=== PATIENT | female | born 1930 | race Caucasian/White ===

== ENCOUNTER 2016-11-29 16:55 | Emergency (ER) | payer MEDICARE, MEDICAID ==
[2016-11-29] MEDS ORDERED: Acetaminophen/HYDROcodone 325-10 MG Tab PO ONE (17:40)
--- NOTE | 2016-11-29 17:43 | EDM.PDOC ---
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 There was no LOC. She initally did not report any pain, but subsequently developed pain affecting the L hip. Staff did not detect any bruising, administered Tylenol without benefit, and subsequently moved her from [facility] to the [facility] for evaluation. She is accompanied by her daughter. Allergies/ADRs: Allergies acetaminophen [From Darvocet-N 100] Allergy (Verified 11/29/16 17:43) Cannot Remember fentanyl Allergy (Verified 11/29/16 17:43) Cannot Remember hydromorphone HCl [From Dilaudid] Allergy (Verified 11/29/16 17:43) Cannot Remember meperidine HCl [From Demerol] Allergy (Verified 11/29/16 17:43) Cannot Remember morphine Allergy (Verified 11/29/16 17:43) Cannot Remember propoxyphene napsylate [From Darvocet-N 100] Allergy (Verified 11/29/16 17:43) Cannot Remember Sulfa (Sulfonamide Antibiotics) Allergy (Verified 11/29/16 17:43) Cannot Remember tramadol HCl [From Ultram] Allergy (Verified 11/29/16 17:43) Cannot Remember valdecoxib [From Bextra] Allergy (Verified 11/29/16 17:43) Cannot Remember Home Medications: Ambulatory Orders Albuterol Sulfate 2.5 mg IH Q6HR PRN 06/05/13 [Confirmed 06/05/13] Carbidopa/Levodopa [Carbidopa-Levo ER 50-200] 1 tab PO DAILY 06/05/13 [ Confirmed 11/29/16] Carbidopa/Levodopa [Carbidopa-Levodopa 25-100] 0.5 tab PO BID PRN 06/05/13 [ Confirmed 11/29/16] Carbidopa/Levodopa [Carbidopa-Levodopa 25-100] 2.5 tab PO BID 06/05/13 [ Confirmed 11/29/16] Diclofenac Sodium [Voltaren 1% Gel] 2 gram TOP BEDTIME 06/05/13 [Confirmed 11/29] Loperamide [Imodium AD] 2 mg PO BID PRN 06/05/13 [Confirmed 11/29/16] Magnesium Hydroxide [Milk of Magnesia] 30 ml PO DAILY PRN 06/05/13 [Confirmed ] PARoxetine [Paxil] 30 mg PO DAILY 06/05/13 [Confirmed 11/29/16] QUEtiapine [SEROquel] 75 mg PO BID 06/05/13 [Confirmed 11/29/16] Rivastigmine [Exelon] 13.3 mg TRDERM DAILY 06/05/13 [Confirmed 11/29/16] Timolol Maleate/PF [Timoptic 0.25% Ocudose Drop] 1 drop EYEBOTH BID 06/05/13 [ Confirmed 11/29/16] guaiFENesin [Robitussin] 10 ml PO Q4H PRN 06/05/13 [Confirmed 11/29/16] Potassium Chloride [Klor-Con 8] 8 meq PO BEDTIME #30 tab.er 06/09/13 [Confirmed 11/29/16] Ciprofloxacin HCl 250 mg PO BID 11/29/16 [Confirmed 11/29/16] Omeprazole Magnesium 20 mg PO DAILY 11/29/16 [Confirmed 11/29/16] Past Medical History Cardiovascular History: Reports: High cholesterol Gastrointestinal History: Reports: Chronic constipation, GERD Genitourinary History: Reports: UTI, recurrent Musculoskeletal History: Reports: Arthritis Neurological History: Reports: Parkinson's, Other (see below) (tardive dyskinesia) Psychiatric History: Reports: Dementia, Hallucinations Social & Family History - Tobacco Use Smoking Status *Q: Never Smoker - Alcohol Use Days Per Week of Alcohol Use: 0 Number of Drinks Per Day: 1 Total Drinks Per Week: 0 - Recreational Drug Use Recreational Drug Use: No Review of Systems - Review of Systems Review Of Systems: See Below Constitutional: Reports: no symptoms Eyes: Reports: no symptoms Ears: Reports: no symptoms Nose: Reports: no symptoms Mouth/Throat: Reports: no symptoms Respiratory: Reports: No Symptoms Cardiovascular: Reports: no symptoms GI/Abdominal: Reports: No symptoms Genitourinary: Reports: no symptoms Musculoskeletal: Reports: joint pain (L hip) Skin: Reports: no symptoms Neurological: Reports: Pre-Existing Deficit, Tremors, Trouble Speaking, Other ( tardive dyskinesia) Psychiatric: Reports: hallucinations Trauma Exam - Physical Exam Exam: See Below Exam Limited By: Language barrier General Appearance: Reports: alert, WD/WN, mild distress Head: Reports: normocephalic Throat/Mouth: Reports: Other (tongue rolling of tardive dyskinesia) Neck: Reports: normal inspection Respiratory Exam: Reports: lungs clear, normal breath sounds Cardiovascular: Reports: regular rate, rhythm, no edema GI/Abdominal: Reports: soft, non tender, no organomegaly (Female) Exam: Deferred Rectal (Female) Exam: Deferred Back: Reports: normal inspection, non-tender Extremities: Reports: no pedal edema, pelvis stable, pain with movement (L hip, no leg shortening), unable to bear weight 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 She is improved with analgesics, and may return to the [facility]. Last Recorded V/S: Last Vital Signs Temp 35.3 C 11/29/16 17:44 Pulse 70 11/29/16 17:44 Resp 22 H 11/29/16 17:44 BP 140/67 11/29/16 17:44 Pulse Ox 95 11/29/16 17:44 - Orders/Labs/Meds Orders: Active Orders 24 hr Category Date Time Status Hip Min 2V or 3V w Pelvis Lt [CR] Stat Exams 11/29/16 17:42 Ordered Meds: Medications Discontinued Medications Generic Name Dose Route Start Last Admin Trade Name Freq PRN Reason Stop Dose Admin Hydrocodone Bitart/Acetaminophen 0.5 tab 11/29/16 17:40 11/29/16 17:53 Quincy 325-10 Mg PO 11/29/16 17:41 0.5 tab ONETIME ONE Administration Departure - Departure Time of Disposition: 18:25 Disposition: DC/Tfer to Long-Term Care [facility] Condition: fair Clinical Impression: Left hip pain Forms: ED Department Discharge - Problem List & Annotations (1) Fall from chair or bed SNOMED Code(s): 774686947 Code(s): BDV8134 - Status: Acute Current Visit: No Annotation/Comment: : Continue lift devices to assist with transfers. (2) Left hip pain SNOMED Code(s): 22800723 Code(s): M25.552 - PAIN IN LEFT HIP Status: Acute Current Visit: Yes Annotation/Comment:: Possible contusion to L hip, managed with rest, cool packs for comfort, Hydrocodone 5/325 as 1/2 tab as directed, and assist with all transfers. - Problem List Review Problem List Initiated/Reviewed/Updated: Yes - My Orders Last 24 Hours: My Active Orders 11/29/16 17:42 Hip Min 2V or 3V w Pelvis Lt [CR] Stat - Assessment/Plan Last 24 Hours: My Active Orders 11/29/16 17:42 Hip Min 2V or 3V w Pelvis Lt [CR] Stat Plan: Follow up with PCP if needed. She may keep appt with Neurology tomorrrow.
[2016-11-29 18:51] VITALS: BP 141/67
--- NOTE | 2016-11-30 10:48 | CR ---
INDICATION: Fall, painful left hip. PELVIS WITH LEFT HIP: AP view of the pelvis and left hip, as well as two lateral views of the left hip were obtained 11/29/2016 and were compared with , again revealing severe osteoarthritis at the left hip joint with virtually no remaining joint space cranial laterally and moderate to moderately severe hypertrophic degenerative changes about the left hip joint. A definite acute fracture site or dislocation was not identified. Mild to moderate degenerative changes are noted at the right hip joint with the joint space well preserved. Degenerative changes are suggested in the visualized lumbosacral spine. Sacroiliac joints appear to be intact. IMPRESSION: 1. No acute fracture or dislocation. 2. Osteoarthritis, most severe at the left hip joint, as previously in 2014. MTDD
== END 2016-11-29 18:45 ==
LOC: FB.ED 16:55
DX: M25.552 Pain in left hip (principal); E78.00 Pure hypercholesterolemia, unspecified; K21.9 Gastro-esophageal reflux disease without esophagitis; Z87.440 Personal history of urinary (tract) infections; M19.90 Unspecified osteoarthritis, unspecified site; G30.9 Alzheimer's disease, unspecified; F02.80 Dementia in other diseases classified elsewhere, unspecified severity, without behavioral disturbance, psychotic disturbance, mood disturbance, and anxiety; Z88.6 Allergy status to analgesic agent; Z79.899 Other long term (current) drug therapy; Z88.5 Allergy status to narcotic agent; Z88.2 Allergy status to sulfonamides
CPT/HCPCS: 73502; 99284; A9270; 99283

== ENCOUNTER 2017-10-19 14:56 | Inpatient (IN) | payer MEDICARE, MEDICAID ==
[2017-10-19] MEDS ORDERED: Albuterol/Ipratropium 3.0-0.5 MG/3 ML Neb Soln NEB ONE (16:13)
--- NOTE | 2017-10-19 16:18 | EDM.PDOC ---
ED HPI GENERAL MEDICAL PROBLEM - General Chief Complaint: Respiratory Problem Stated Complaint: SOB Time Seen by Provider: 10/19/17 14:56 Source of Information: Reports: Patient, EMS, Family History Limitations: Reports: Altered Mental Status, Physical Impairment, Respiratory Distress - History of Present Illness INITIAL COMMENTS - FREE TEXT/NARRATIVE: 87 y.o.w.f came from the correction because of SOB. Pt has a long Psych history, H/O Parkinson and other multiple medical issues. No F/C, no N/V pt feels very thirsty. Pt was seen initially at the clinic and sent to the ed for further eval. Pt is not able to give a HIP. BP 106/93 pulse 65 Temp 35.8 RR 20 Pulse ox 92% on RA Onset Date: 10/17/17 Onset Time: 08:00 Duration: Day(s):, Intermittent Location: Reports: Chest Quality: Reports: Ache, Burning, Same as Previous Episode Severity: Moderate Improves with: Reports: Rest Worsens with: Reports: Movement Context: Reports: Sick Contact, Other (multiple psych issues.) Associated Symptoms: Reports: Confusion, Loss of Appetite, Shortness of Breath, Weakness - Related Data Allergies Allergy/AdvReac Type Severity Reaction Status Date / Time acetaminophen Allergy Cannot Verified 10/19/17 17:38 [From Darvocet-N 100] Remember fentanyl Allergy Cannot Verified 10/19/17 17:38 Remember hydromorphone HCl Allergy Cannot Verified 10/19/17 17:38 [From Dilaudid] Remember meperidine HCl [From Demerol] Allergy Cannot Verified 10/19/17 17:38 Remember morphine Allergy Cannot Verified 10/19/17 17:38 Remember propoxyphene napsylate Allergy Cannot Verified 10/19/17 17:38 [From Darvocet-N 100] Remember Sulfa (Sulfonamide Allergy Cannot Verified 10/19/17 17:38 Antibiotics) Remember tramadol HCl [From Ultram] Allergy Cannot Verified 10/19/17 17:38 Remember valdecoxib [From Bextra] Allergy Cannot Verified 10/19/17 17:38 Remember Home Meds: Home Meds Albuterol Sulfate 2.5 mg IH Q6HR PRN 06/05/13 [History] Carbidopa/Levodopa [Carbidopa-Levo ER 50-200] 1 tab PO 20 06/05/13 [History] Carbidopa/Levodopa [Carbidopa-Levodopa 25-100] 2.5 tab PO 10 06/05/13 [History] Carbidopa/Levodopa [Carbidopa-Levodopa 25-100] 2.5 tab PO 13 06/05/13 [History] Diclofenac Sodium [Voltaren 1% Gel] 2 gram TOP BEDTIME 06/05/13 [History] Loperamide [Imodium AD] 2 mg PO BID PRN 06/05/13 [History] Magnesium Hydroxide [Milk of Magnesia] 30 ml PO DAILY PRN 06/05/13 [History] PARoxetine [Paxil] 30 mg PO 16 06/05/13 [History] guaiFENesin [Robitussin] 10 ml PO Q4H PRN 06/05/13 [History] Acetaminophen [Acetaminophen ER] 650 mg PO Q4H PRN 10/19/17 [History] Acetaminophen [Tylenol Extra Strength] 1,000 mg PO TID 10/19/17 [History] Amantadine [Symmetrel] 50 mg PO ,10/19/17 [History] Bisacodyl [Dulcolax] 10 mg RECTAL Q72H PRN 10/19/17 [History] Carbidopa/Levodopa [Sinemet 25-100 mg Tablet] 3 tab PO ,10/19/17 [History] ClonazePAM [KlonoPIN] 0.25 mg PO BEDTIME 10/19/17 [History] Furosemide [Lasix] 40 mg PO 08,12 10/19/17 [History] Memantine HCl [Namenda Xr] 28 mg PO DAILY 10/19/17 [History] Pimavanserin Tartrate [Nuplazid] 34 mg PO 20 10/19/17 [History] Potassium Chloride 20 meq PO 20 10/19/17 [History] QUEtiapine [SEROquel XR] 25 mg PO 08,20 10/19/17 [History] Sennosides/Docusate Sodium [Senna-S] 1 tab PO Q48H 10/19/17 [History] Rivastigmine 13.3 mg TRDERM DAILY 10/20/17 [History] Timolol Maleate/PF [Timoptic 0.5% Ocudose Drop] 2 drop EYELF BID@,20 10/20/17 [History] Past Medical History Cardiovascular History: Reports: High Cholesterol Respiratory History: Reports: Asthma, COPD Gastrointestinal History: Reports: Chronic Constipation, GERD Genitourinary History: Reports: UTI, Recurrent Musculoskeletal History: Reports: Arthritis Neurological History: Reports: Parkinson's, Other (See Below) Psychiatric History: Reports: Dementia, Hallucinations Social & Family History - Tobacco Use Smoking Status *Q: Never Smoker - Caffeine Use Caffeine Use: Reports: Coffee - Alcohol Use Days Per Week of Alcohol Use: 0 Number of Drinks Per Day: 1 Total Drinks Per Week: 0 - Recreational Drug Use Recreational Drug Use: No ED ROS GENERAL - Review of Systems Review Of Systems: Unable To Obtain ED EXAM, GENERAL - Physical Exam Exam: See Below Exam Limited By: Altered Mental Status General Appearance: Alert, WD/WN, Mild Distress, Moderate Distress Eye Exam: Bilateral Eye: Normal Inspection Ears: Normal External Exam Ear Exam: Bilateral Ear: Auricle Normal Nose: Normal Inspection, Normal Mucosa Throat/Mouth: Normal Lips, No Airway Compromise, Other (dry mucosal membrane) Head: Atraumatic, Normocephalic Neck: Normal Inspection, Supple, Non-Tender, Full Range of Motion Respiratory/Chest: Respiratory Distress, Decreased Breath Sounds, Wheezing, Prolonged Expiration Cardiovascular: Normal Peripheral Pulses, Irregularly Irregular Peripheral Pulses: 1+: Radial (L) GI/Abdominal: Normal Bowel Sounds, Soft, Non-Tender, No Organomegaly, No Abnormal Bruit, No Mass (Female) Exam: Deferred Rectal (Female) Exam: Deferred Back Exam: Normal Inspection, Full Range of Motion Extremities: Normal Inspection, Normal Range of Motion, Non-Tender, No Pedal Edema Neurological: Alert, CN II-XII Intact, Abnormal Gait Psychiatric: Flat Affect, Tearful Skin Exam: Warm, Dry, Intact, Normal Color, No Rash Lymphatic: No Adenopathy EKG INTERPRETATION EKG Date: 10/19/17 Time: 20:00 Rhythm: A-Fib Rate (Beats/Min): 81 [place]: Normal P-Wave: Present QRS: Normal ST-T: Normal QT: Prolonged Comparison: NA - No Prior EKG Course - Vital Signs Text/Narrative:: 87 y.o.w.f came from the correction because of SOB. Pt has a long Psych history, H/O Parkinson and other multiple medical issues. No F/C, no N/V pt feels very thirsty. Pt was seen initially at the clinic and sent to the ed for further eval. Pt is not able to give a HIP. BP 106/93 pulse 65 Temp 35.8 RR 20 Pulse ox 92% on RA PE: WNWD WF with intermittent SOB, cough and extremely thirsty Imaging: CXR: infiltrate RML of lung as per RAD Labs: WBC 10.6 HGB 12.6 HCT 34.3 K 3.3 Na 136 Lactic acid 1.2 Impression: Right lung infiltrate, prolonged QTC interval, prod cough, Dehydration, H/O Parkinson Disease, multiple medical issues incl Psych. Tx: Levoquine was not given because a prolonged QTc interval, NS, Rocephine. 5.54 pm: Consultation: Dr. Jeffery, Hospitalist: admit as inpatient. Plan: Admit as inpatient Last Recorded V/S: Last Vital Signs Temp 36.9 C 10/22/17 03:30 Pulse 66 10/22/17 03:30 Resp 20 10/22/17 03:30 BP 110/63 10/22/17 03:30 Pulse Ox 90 L 10/22/17 03:30 - Orders/Labs/Meds Orders: Medication Orders Acetaminophen (Tylenol) 650 mg PO Q4H PRN PRN Reason: Pain Albuterol (Proventil Neb Soln) 2.5 mg NEB Q2H PRN PRN Reason: Shortness Of Breath/wheezing Last Admin: 10/20/17 14:05 Dose: 2.5 mg Admin: 10/20/17 07:59 Dose: 2.5 mg Admin: 10/19/17 22:00 Dose: 2.5 mg Amantadine HCl (Symmetrel) 50 mg PO BID@1000,1600 [facility] Last Admin: 10/21/17 17:07 Dose: 50 mg Admin: 10/21/17 10:15 Dose: 50 mg Admin: 10/20/17 16:30 Dose: 50 mg Admin: 10/20/17 09:25 Dose: 50 mg Bisacodyl (Dulcolax) 10 mg RECTAL Q72H PRN PRN Reason: Constipation Carbidopa/Levodopa (Sinemet 25-100 Mg) 2.5 tab PO 13 [facility] Last Admin: 10/21/17 13:39 Dose: 2.5 tab Admin: 10/20/17 13:31 Dose: 2.5 tab Carbidopa/Levodopa (Sinemet Cr 50-200 Mg) 1 tab PO QPM@2000 [facility] Last Admin: 10/21/17 20:16 Dose: 1 tab Admin: 10/20/17 20:12 Dose: 1 tab Admin: 10/19/17 22:21 Dose: 1 tab Carbidopa/Levodopa (Sinemet 25-100 Mg) 2.5 tab PO DAILY@1000 [facility] Last Admin: 10/21/17 10:14 Dose: 2.5 tab Admin: 10/20/17 09:23 Dose: 2.5 tab Carbidopa/Levodopa (Sinemet 25-100 Mg) 3 tab PO BID@0700,1600 [facility] Last Admin: 10/21/17 17:07 Dose: 3 tab Admin: 10/21/17 06:13 Dose: 3 tab Admin: 10/20/17 16:31 Dose: 3 tab Admin: 10/20/17 06:20 Dose: 3 tab Ceftriaxone Sodium (Rocephin) 1,000 mg IVPUSH Q24H [facility] Last Admin: 10/21/17 20:17 Dose: 1,000 mg Admin: 10/20/17 20:19 Dose: 1,000 mg Admin: 10/19/17 20:52 Dose: 1,000 mg Clonazepam (Klonopin) 0.25 mg PO BEDTIME [facility] Last Admin: 10/21/17 20:17 Dose: 0.25 mg Admin: 10/20/17 20:17 Dose: 0.25 mg Admin: 10/19/17 22:21 Dose: 0.25 mg Diclofenac Sodium (Voltaren 1% Gel) 2 gm TOP BEDTIME [facility] Last Admin: 10/21/17 20:17 Dose: 2 gm Admin: 10/20/17 20:18 Dose: 2 gm Docusate Sodium (Colace) 100 mg PO BID PRN PRN Reason: Constipation Furosemide (Lasix) 40 mg IVPUSH BIDDIURETIC [facility] Last Admin: 10/21/17 13:43 Dose: 40 mg Admin: 10/21/17 08:10 Dose: 40 mg Admin: 10/20/17 16:27 Dose: 40 mg Admin: 10/20/17 10:23 Dose: 40 mg Guaifenesin (Robitussin) 200 mg PO Q4H PRN PRN Reason: Cough Last Admin: 10/22/17 04:19 Dose: 200 mg Admin: 10/20/17 02:07 Dose: 200 mg Azithromycin 500 mg/ Sodium (Chloride) 250 mls @ 250 mls/hr IV Q24H [facility] Last Admin: 10/21/17 10:15 Dose: 250 mls/hr Admin: 10/20/17 10:32 Dose: 250 mls/hr Loperamide HCl (Imodium Ad) 2 mg PO BID PRN PRN Reason: Diarrhea Magnesium Hydroxide (Milk Of Magnesia) 30 ml PO DAILY PRN PRN Reason: Constipation Memantine (Namenda Xr) 28 mg PO DAILY [facility] Last Admin: 10/21/17 08:13 Dose: 28 mg Admin: 10/20/17 09:22 Dose: 28 mg Pimavanserin Tartrate [Nuplazid] 17 Mg TabOwn Med 0 mg PO QPM@1999 [facility] Last Admin: 10/21/17 20:14 Dose: 34 mg Admin: 10/20/17 20:09 Dose: 34 mg Admin: 10/19/17 22:24 Dose: 34 mg Rivastigmine Patch (13.3mg/24 Hr *Prom) 1 each TOP DAILY [facility] Last Admin: 10/21/17 08:11 Dose: 1 each Admin: 10/20/17 09:23 Dose: 1 each Timoptic Ocudose 0.5 (% Ptom) 0 each EYELF BID@ [facility] Last Admin: 10/21/17 20:15 Dose: 1 each Admin: 10/21/17 08:12 Dose: 1 each Admin: 10/20/17 20:09 Dose: 1 each Admin: 10/20/17 09:21 Dose: 1 each Paroxetine HCl (Paxil) 30 mg PO DAILY@1600 [facility] Last Admin: 10/21/17 17:08 Dose: 30 mg Admin: 10/20/17 16:31 Dose: 30 mg Potassium Chloride (Klor-Con M20) 20 meq PO QPM@1999 [facility] Last Admin: 10/21/17 20:14 Dose: 20 meq Admin: 10/20/17 20:08 Dose: 20 meq Admin: 10/19/17 22:22 Dose: 20 meq Quetiapine Fumarate (Seroquel Xr) 25 mg PO BID@ [facility] Last Admin: 10/21/17 20:16 Dose: 25 mg Admin: 10/21/17 08:12 Dose: 25 mg Admin: 10/20/17 20:10 Dose: 25 mg Admin: 10/20/17 09:21 Dose: 25 mg Admin: 10/19/17 22:25 Dose: 25 mg Senna/Docusate Sodium (Senna Plus) 1 tab PO Q48H [facility] Last Admin: 10/21/17 08:08 Dose: Sodium Chloride (Saline Flush) 10 ml FLUSH ASDIRECTED PRN PRN Reason: Keep Vein Open Last Admin: 10/21/17 20:17 Dose: 10 ml Admin: 10/21/17 13:51 Dose: 10 ml Admin: 10/21/17 08:20 Dose: 10 ml Admin: 10/20/17 20:38 Dose: 10 ml Admin: 10/20/17 16:39 Dose: 10 ml Admin: 10/20/17 10:35 Dose: 10 ml Admin: 10/20/17 09:00 Dose: 10 ml Labs: Laboratory Tests 10/19/17 10/19/17 10/19/17 Range/Units 16:35 16:35 16:35 WBC 10.6 (4.5-12.0) X10-3/uL RBC 4.45 (3.23-5.20) x10(6)uL Hgb 12.0 (11.5-15.5) g/dL Hct 38.4 (30.0-51.3) % MCV 86.2 (80-96) fL MCH 26.9 L (27.7-33.6) pg MCHC 31.3 L (32.2-35.4) g/dL RDW 17.8 H (11.5-15.5) % Plt Count 353 (125-369) X10(3)uL MPV 8.4 (7.4-10.4) fL Neut % (Auto) 70.4 (46-82) % Lymph % (Auto) 18.1 (13-37) % [place] % (Auto) 9.7 (4-12) % Eos % (Auto) 2 (1.0-5.0) % Baso % (Auto) 0 (0-2) % Neut # (Auto) 7.5 (1.6-8.3) # Lymph # (Auto) 1.9 (0.6-5.0) # [place] # (Auto) 1.0 (0.0-1.3) # Eos # (Auto) 0.2 (0.0-0.8) # Baso # (Auto) 0.0 (0.0-0.2) # PT 11.7 H (8.7-11.1) INR 1.16 H (0.89-1.13) Sodium 143 (135-145) mmol/L Potassium 3.3 L (3.5-5.3) mmol/L Chloride 102 (100-110) mmol/L Carbon Dioxide 33 H (21-32) mmol/L BUN 23 H (7-18) mg/dL Creatinine 1.0 (0.55-1.02) mg/dL Est Cr Clr Drug Dosing TNP Estimated GFR (MDRD) 52 L (>60) BUN/Creatinine Ratio 23.0 H (9-20) Glucose 128 H (80-116) mg/dL Lactic Acid (0.4-2.2) mmol/L Calcium 9.1 (8.6-10.2) mg/dL Troponin I (<0.017-0.056) ng/mL NT-Pro-B Natriuret Pep (<=450) pg/mL 10/19/17 10/19/17 Range/Units 16:35 16:35 WBC (4.5-12.0) X10-3/uL RBC (3.23-5.20) x10(6)uL Hgb (11.5-15.5) g/dL Hct (30.0-51.3) % MCV (80-96) fL MCH (27.7-33.6) pg MCHC (32.2-35.4) g/dL RDW (11.5-15.5) % Plt Count (125-369) X10(3)uL MPV (7.4-10.4) fL Neut % (Auto) (46-82) % Lymph % (Auto) (13-37) % [place] % (Auto) (4-12) % Eos % (Auto) (1.0-5.0) % Baso % (Auto) (0-2) % Neut # (Auto) (1.6-8.3) # Lymph # (Auto) (0.6-5.0) # [place] # (Auto) (0.0-1.3) # Eos # (Auto) (0.0-0.8) # Baso # (Auto) (0.0-0.2) # PT (8.7-11.1) INR (0.89-1.13) Sodium (135-145) mmol/L Potassium (3.5-5.3) mmol/L Chloride (100-110) mmol/L Carbon Dioxide (21-32) mmol/L BUN (7-18) mg/dL Creatinine (0.55-1.02) mg/dL Est Cr Clr Drug Dosing Estimated GFR (MDRD) (>60) BUN/Creatinine Ratio (9-20) Glucose (80-116) mg/dL Lactic Acid 1.2 (0.4-2.2) mmol/L Calcium (8.6-10.2) mg/dL Troponin I < 0.017 L (<0.017-0.056) ng/mL NT-Pro-B Natriuret Pep 2283 H* (<=450) pg/mL Meds: Medications Generic Name Dose Route Start Last Admin Trade Name Freq PRN Reason Stop Dose Admin Acetaminophen 650 mg 10/20/17 07:49 Tylenol PO Q4H PRN Pain Albuterol 2.5 mg 10/19/17 18:02 10/20/17 14:05 Proventil Neb Soln NEB 2.5 mg Q2H PRN Administration Shortness Of Breath/wheezing Amantadine HCl 50 mg 10/20/17 10:00 10/21/17 17:07 Symmetrel PO 50 mg BID@1000,1600 [facility] Administration Bisacodyl 10 mg 10/19/17 21:09 Dulcolax RECTAL Q72H PRN Constipation Carbidopa/Levodopa 2.5 tab 10/20/17 13:00 10/21/17 13:39 Sinemet 25-100 Mg PO 2.5 tab 13 [facility] Administration Carbidopa/Levodopa 1 tab 10/19/17 21:30 10/21/17 20:16 Sinemet Cr 50-200 Mg PO 1 tab QPM@2000 [facility] Administration Carbidopa/Levodopa 2.5 tab 10/20/17 10:00 10/21/17 10:14 Sinemet 25-100 Mg PO 2.5 tab DAILY@1000 [facility] Administration Carbidopa/Levodopa 3 tab 10/20/17 07:00 10/21/17 17:07 Sinemet 25-100 Mg PO 3 tab BID@0700,1600 [facility] Administration Ceftriaxone Sodium 1,000 mg 10/19/17 21:00 10/21/17 20:17 Rocephin IVPUSH 1,000 mg Q24H [facility] Administration Clonazepam 0.25 mg 10/19/17 22:00 10/21/17 20:17 Klonopin PO 0.25 mg BEDTIME [facility] Administration Diclofenac Sodium 2 gm 10/20/17 21:00 10/21/17 20:17 Voltaren 1% Gel TOP 2 gm BEDTIME [facility] Administration Docusate Sodium 100 mg 10/19/17 18:02 Colace PO BID PRN Constipation Furosemide 40 mg 10/20/17 09:45 10/21/17 13:43 Lasix IVPUSH 40 mg BIDDIURETIC [facility] Administration Guaifenesin 200 mg 10/19/17 21:09 10/22/17 04:19 Robitussin PO 200 mg Q4H PRN Administration Cough Azithromycin 500 mg/ Sodium 250 mls @ 250 mls/hr 10/20/17 10:00 10/21/17 10: 15 Chloride IV 250 mls/hr Q24H [facility] Administration Loperamide HCl 2 mg 10/19/17 21:09 Imodium Ad PO BID PRN Diarrhea Magnesium Hydroxide 30 ml 10/19/17 21:09 Milk Of Magnesia PO DAILY PRN Constipation Memantine 28 mg 10/20/17 09:00 10/21/17 08:13 Namenda Xr PO 28 mg DAILY [facility] Administration Pimavanserin 0 mg 10/19/17 22:15 10/21/17 20:14 Tartrate [Nuplazid] PO 34 mg 17 Mg TabOwn Med QPM@1999 [facility] Administration Rivastigmine Patch 1 each 10/20/17 09:00 10/21/17 08:11 13.3mg/24 Hr *Prom TOP 1 each DAILY [facility] Administration Timoptic Ocudose 0.5 0 each 10/20/17 08:00 10/21/17 20:15 % Ptom EYELF 1 each BID@ [facility] Administration Paroxetine HCl 30 mg 10/20/17 16:00 10/21/17 17:08 Paxil PO 30 mg DAILY@1600 [facility] Administration Potassium Chloride 20 meq 10/19/17 22:00 10/21/17 20:14 Klor-Con M20 PO 20 meq QPM@1999 [facility] Administration Quetiapine Fumarate 25 mg 10/19/17 22:15 10/21/17 20:16 Seroquel Xr PO 25 mg BID@0800,1999 [facility] Administration Senna/Docusate Sodium 1 tab 10/21/17 08:00 10/21/17 08:08 Senna Plus PO Not Given Q48H [facility] Sodium Chloride 10 ml 10/20/17 10:21 10/21/17 20:17 Saline Flush FLUSH 10 ml ASDIRECTED PRN Administration Keep Vein Open Discontinued Medications Generic Name Dose Route Start Last Admin Trade Name Freq PRN Reason Stop Dose Admin Acetaminophen 650 mg 10/19/17 21:09 Tylenol Arthritis Pain PO Q4H PRN Pain Albuterol/Ipratropium 3 ml 10/19/17 16:13 10/19/17 17:12 Duoneb 3.0-0.5 Mg/3 Ml NEB 10/19/17 16:14 3 ml ONETIME ONE Administration Carbidopa/Levodopa 2.5 tab 10/20/17 10:00 Sinemet 25-100 Mg PO 10 [facility] Carbidopa/Levodopa 3 tab 10/20/17 07:00 Sinemet 25-100 Mg PO 07,16 [facility] Clonazepam 0.25 mg 10/20/17 21:00 Klonopin PO BEDTIME [facility] Sodium Chloride 500 mls @ 999 mls/hr 10/19/17 17:40 10/19/17 20:11 Normal Saline IV 10/19/17 18:10 999 mls/hr .BOLUS ONE Administration Lactated Ringer's 1,000 mls @ 125 mls/hr 10/19/17 18:15 10/20/17 09:15 Ringers, Lactated IV 0 mls/hr ASDIRECTED [facility] Infusion Ceftriaxone Sodium 1,000 mg/ 50 mls @ 100 mls/hr 10/19/17 20:15 Sodium Chloride IV Q24H [facility] Metolazone 5 mg 10/21/17 09:23 10/21/17 10:14 Zaroxolyn PO 10/21/17 09:24 Not Given ONETIME ONE Metolazone 5 mg 10/21/17 10:00 10/21/17 10:15 Zaroxolyn PO 10/21/17 10:01 5 mg ONETIME ONE Administration Non-Formulary Medication 50 mg 10/20/17 10:00 Amantadine [Symmetrel] PO 10,16 [facility] Non-Formulary Medication 0.25 mg 10/20/17 21:00 Clonazepam [Klonopin] PO BEDTIME [facility] Non-Formulary Medication 28 mg 10/20/17 09:00 Memantine Hcl PO DAILY [facility] Non-Formulary Medication 34 mg 10/20/17 20:00 Pimavanserin Tartrate [Nuplazid] PO 20 [facility] Non-Formulary Medication 20 meq 10/20/17 20:00 Potassium Chloride [Potassium Chloride] PO 20 [facility] Non-Formulary Medication 2 drop 10/20/17 08:00 Timolol [Betimol 0.5% Ophth Soln] EYELF 08,20 [facility] Paroxetine HCl 30 mg 10/20/17 16:00 Paxil PO 16 [facility] Quetiapine Fumarate 25 mg 10/20/17 08:00 Seroquel Xr PO 08,20 [facility] Rivastigmine 13.3 mg 10/20/17 09:00 Exelon TRDERM DAILY [facility] Senna/Docusate Sodium 1 tab 10/19/17 21:15 10/19/17 21:55 Senna Plus PO Not Given Q48H [facility] Timolol Maleate 0 ml 10/20/17 08:00 Timoptic 0.5% Ophth Soln EYELF BID@08,1999 [facility] Timolol Maleate 0 ml 10/19/17 21:45 10/19/17 22:22 Timoptic 0.5% Ophth Soln EYELF 2 drop BID@08,1999 [facility] Administration Departure - Departure Time of Disposition: 15:00 Disposition: Admitted As Inpatient 65 Condition: Fair Clinical Impression: Pneumonia Qualifiers: Lung location: middle lobe of lung - Discharge Information
[2017-10-19] MEDS ORDERED: Sodium Chloride 0.9% 500 ML IV ONE (17:40)
[2017-10-19] MEDS ORDERED: Docusate Sodium 100 MG Cap PO PRN (18:02)
[2017-10-19] MEDS ORDERED: cefTRIAXone 1,000 MG in Sodium Chloride 0.9% 50 ML IV SCH (20:15)
[2017-10-19] MEDS: Lactated Ringers 1,000 ML IV SCH (20:50)
[2017-10-19] MEDS: cefTRIAXone 1,000 MG VIAL IVPUSH SCH (20:52)
[2017-10-19] MEDS ORDERED: Bisacodyl 10 MG Supp RECTAL PRN (21:09)
[2017-10-19] MEDS ORDERED: Acetaminophen 650 MG Tab.ER PO PRN (21:09)
[2017-10-19] MEDS ORDERED: Magnesium Hydroxide 400 MG/5 ML Susp 30 ML Cup PO PRN (21:09)
[2017-10-19] MEDS ORDERED: ALBUTEROL SULFATE 2.5 MG IH PRN (21:09)
[2017-10-19] MEDS ORDERED: Loperamide 2 MG Tab PO PRN (21:09)
[2017-10-19] MEDS ORDERED: Timolol Maleate 0.5% Ophth Soln 5 ML Bottle EYELF SCH (21:45)
[2017-10-19] MEDS: Albuterol 0.083% 2.5 MG/3 ML Neb Soln NEB PRN (22:00)
[2017-10-19] MEDS: Carbidopa/Levodopa 50-200 MG Tab.ER PO SCH (22:21)
[2017-10-19] MEDS: ClonazePAM 0.5 MG Tab PO SCH (22:21)
[2017-10-19] MEDS: Potassium Chloride 20 MEQ Tab.ER PO SCH (22:22)
[2017-10-19] MEDS: PIMAVANSERIN TARTRATE 17 MG PO SCH (22:24)
[2017-10-19] MEDS: QUEtiapine 50 MG Tab.SR PO SCH (22:25)
[2017-10-20] MEDS: guaiFENesin 100 MG/5 ML Soln 5 ML UD Cup PO PRN (02:07)
[2017-10-20] MEDS: Lactated Ringers 1,000 ML IV SCH (04:55)
[2017-10-20] MEDS: Carbidopa/Levodopa 25-100 MG Tab PO SCH ×4 (06:20→16:31)
[2017-10-20] MEDS ORDERED: Carbidopa/Levodopa 25-100 MG Tab PO SCH ×2 (07:00→10:00)
[2017-10-20] MEDS ORDERED: Acetaminophen 325 MG Tab PO PRN (07:49)
[2017-10-20] MEDS: Albuterol 0.083% 2.5 MG/3 ML Neb Soln NEB PRN ×2 (07:59→14:05)
[2017-10-20] MEDS ORDERED: QUEtiapine 50 MG Tab.SR PO SCH (08:00)
[2017-10-20] MEDS ORDERED: Timolol Maleate 0.5% Ophth Soln 5 ML Bottle EYELF SCH (08:00)
[2017-10-20] MEDS ORDERED: TIMOLOL EYELF SCH (08:00)
[2017-10-20] MEDS ORDERED: Rivastigmine 9.5 MG/24 HR Transdermal Patch TRDERM SCH (09:00)
[2017-10-20] MEDS: Sodium Chloride 0.9% 10 ML Syringe FLUSH PRN ×4 (09:00→20:38)
[2017-10-20] MEDS ORDERED: MEMANTINE HCL 28 MG PO SCH (09:00)
[2017-10-20] MEDS: TIMOPTIC OCUDOSE EYELF SCH ×2 (09:21→20:09)
[2017-10-20] MEDS: QUEtiapine 50 MG Tab.SR PO SCH ×2 (09:21→20:10)
[2017-10-20] MEDS: Memantine HCl 28 MG CAP.ER PO SCH (09:22)
[2017-10-20] MEDS: RIVASTIGMINE 13.3 MG/24 HR TOP SCH (09:23)
[2017-10-20] MEDS: AMANTADINE 100 MG PO SCH ×2 (09:25→16:30)
--- NOTE | 2017-10-20 09:53 | PCM.HP ---
H&P History of Present Illness - General Date of Service: 10/20/17 Admit Problem/Dx: Admission Diagnosis/Problem Admission Diagnosis/Problem Pneumonia Source of Information: Family, Long-Term Records History Limitations: Reports: Respiratory Distress - History of Present Illness Initial Comments - Free Text/Narative: Ms. Lisa is an 87-[facility]-old [facility] was brought to the ER last night because of shortness of breath. According to her son , the symptoms started about Sunday when he noticed she was sweating and lethargic. Apparently she got worse yesterday with shortness of breath and cough but no reported fever. She has never had a history of COPD or pneumonia, but has had CHF in the past an ejection fraction of 65% noted on echocardiogram in 2012. 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 In addition she's had essential tremors and parkinsonism -Idiopathic- that started recently. She is wheelchair-bound and needs help with feeding, toileting and other activities of daily living. There is no report of any aspiration. She has complained of abdominal pain in the lower quadrants,especially when she is coughing. - Related Data Allergies/Adverse Reactions: Allergies Allergy/AdvReac Type Severity Reaction Status Date / Time acetaminophen Allergy Cannot Verified 10/19/17 17:38 [From Darvocet-N 100] Remember fentanyl Allergy Cannot Verified 10/19/17 17:38 Remember hydromorphone HCl Allergy Cannot Verified 10/19/17 17:38 [From Dilaudid] Remember meperidine HCl [From Demerol] Allergy Cannot Verified 10/19/17 17:38 Remember morphine Allergy Cannot Verified 10/19/17 17:38 Remember propoxyphene napsylate Allergy Cannot Verified 10/19/17 17:38 [From Darvocet-N 100] Remember Sulfa (Sulfonamide Allergy Cannot Verified 10/19/17 17:38 Antibiotics) Remember tramadol HCl [From Ultram] Allergy Cannot Verified 10/19/17 17:38 Remember valdecoxib [From Bextra] Allergy Cannot Verified 10/19/17 17:38 Remember Home Medications: Home Meds Albuterol Sulfate 2.5 mg IH Q6HR PRN 06/05/13 [History] Carbidopa/Levodopa [Carbidopa-Levo ER 50-200] 1 tab PO 20 06/05/13 [History] Carbidopa/Levodopa [Carbidopa-Levodopa 25-100] 2.5 tab PO 10 06/05/13 [History] Carbidopa/Levodopa [Carbidopa-Levodopa 25-100] 2.5 tab PO 13 06/05/13 [History] Diclofenac Sodium [Voltaren 1% Gel] 2 gram TOP BEDTIME 06/05/13 [History] Loperamide [Imodium AD] 2 mg PO BID PRN 06/05/13 [History] Magnesium Hydroxide [Milk of Magnesia] 30 ml PO DAILY PRN 06/05/13 [History] PARoxetine [Paxil] 30 mg PO 16 06/05/13 [History] guaiFENesin [Robitussin] 10 ml PO Q4H PRN 06/05/13 [History] Acetaminophen [Acetaminophen ER] 650 mg PO Q4H PRN 10/19/17 [History] Acetaminophen [Tylenol Extra Strength] 1,000 mg PO TID 10/19/17 [History] Amantadine [Symmetrel] 50 mg PO ,10/19/17 [History] Bisacodyl [Dulcolax] 10 mg RECTAL Q72H PRN 10/19/17 [History] Carbidopa/Levodopa [Sinemet 25-100 mg Tablet] 3 tab PO ,10/19/17 [History] ClonazePAM [KlonoPIN] 0.25 mg PO BEDTIME 10/19/17 [History] Furosemide [Lasix] 40 mg PO 08,12 10/19/17 [History] Memantine HCl [Namenda Xr] 28 mg PO DAILY 10/19/17 [History] Pimavanserin Tartrate [Nuplazid] 34 mg PO 20 10/19/17 [History] Potassium Chloride 20 meq PO 20 10/19/17 [History] QUEtiapine [SEROquel XR] 25 mg PO 08,10/19/17 [History] Sennosides/Docusate Sodium [Senna-S] 1 tab PO Q48H 10/19/17 [History] Rivastigmine 13.3 mg TRDERM DAILY 10/20/17 [History] Timolol Maleate/PF [Timoptic 0.5% Ocudose Drop] 2 drop EYELF BID@,20 10/20/17 [History] Past Medical History HEENT History: Reports: Impaired Vision Other HEENT History: WEARS GLASSES Cardiovascular History: Reports: High Cholesterol Respiratory History: Reports: Asthma, COPD Gastrointestinal History: Reports: Chronic Constipation, GERD Genitourinary History: Reports: UTI, Recurrent [employer] History: Reports: Musculoskeletal History: Reports: Arthritis Neurological History: Reports: Parkinson's, Other (See Below) Psychiatric History: Reports: Dementia, Hallucinations Social & Family History - Family History Family Medical History: Unobtainable - Tobacco Use Smoking Status *Q: Never Smoker Years of Tobacco use: 10 Used Tobacco, but Quit: No Second Hand Smoke Exposure: No - Caffeine Use Caffeine Use: Reports: Coffee - Alcohol Use Days Per Week of Alcohol Use: 0 Number of Drinks Per Day: 1 Total Drinks Per Week: 0 - Recreational Drug Use Recreational Drug Use: No H&P Review of Systems - Review of Systems: Review Of Systems: ROS reveals no pertinent complaints other than HPI. Exam - Exam Exam: See Below - Vital Signs Vital Signs: Last Vital Signs Temp 98.7 F 10/20/17 04:00 Pulse 94 10/20/17 08:03 Resp 18 10/20/17 04:00 BP 126/71 10/20/17 04:00 Pulse Ox 91 L 10/20/17 08:03 Weight: 67.495 kg - Exam Quality Assessment: No: Supplemental Oxygen General: Alert, Moderate Distress HEENT: PERRLA, Hearing Intact, Mucosa Moist & Learned, Nares Patent, Normal Nasal Septum, Posterior Pharynx Clear, Conjunctiva Clear, EOMI, EACs Clear, TMs Clear Neck: Supple, Trachea Midline, +2 Carotid Pulse wo Bruit Lungs: Rhonchi, Wheezing Cardiovascular: Regular Rate, Regular Rhythm GI/Abdominal Exam: Normal Bowel Sounds, Soft, No Organomegaly, No Distention, No Abnormal Bruit, No Mass, Pelvis Stable, Tender (Lower quadrants). No: Distended (Female) Exam: Deferred Rectal (Female) Exam: Deferred Back Exam: Normal Inspection, Full Range of Motion, NT Extremities: Normal Inspection, Normal Range of Motion, Non-Tender, No Pedal Edema, Normal Capillary Refill Skin: Warm, Dry, Intact Neurological: Cranial Nerves Intact, Reflexes Equal Bilateral Neuro Extensive - Mental Status: Alert, Oriented x3, Normal Mood/Affect, Normal Cognition Neuro Extensive - Motor, Sensory, Reflexes: CN II-XII Intact, Normal Gait, Normal Reflexes Psychiatric: Alert, Anxious - Patient Data Lab Results Last 24 hrs: Laboratory Results - last 24 hr 10/20/17 Range/Units 06:22 Sodium 140 (135-145) mmol/L Potassium 3.6 (3.5-5.3) mmol/L Chloride 103 (100-110) mmol/L Carbon Dioxide 30 (21-32) mmol/L BUN 17 (7-18) mg/dL Creatinine 0.7 (0.55-1.02) mg/dL Est Cr Clr Drug Dosing 39.90 mL/min Estimated GFR (MDRD) > 60 (>60) BUN/Creatinine Ratio 24.3 H (9-20) Glucose 87 (80-116) mg/dL Calcium 8.8 (8.6-10.2) mg/dL Result Diagrams: 10/19/17 16:35 10/20/17 06:22 Imaging Impressions Last 24 hrs: I personally reviewed x-ray, if it shows mild fluid overload and pneumonia but I cannot comprehensively rule out an infiltrate. *Q Meaningful Use (ADM) - VTE *Q VTE Criteria *Q: - Stroke *Q Stroke Criteria *Q: - AMI *Q AMI Criteria *Q: - Problem List (1) CHF (congestive heart failure) SNOMED Code(s): 49906640 ICD Code: I50.9 - HEART FAILURE, UNSPECIFIED Status: Acute Current Visit : Yes Qualifiers: Heart failure chronicity: unspecified (2) Pneumonia SNOMED Code(s): 650353944 ICD Code: J18.9 - PNEUMONIA, UNSPECIFIED ORGANISM Status: Acute Current Visit: Yes Qualifiers: Lung location: middle lobe of lung (3) Anxiety SNOMED Code(s): 29858864 ICD Code: F41.9 - ANXIETY DISORDER, UNSPECIFIED Status: Chronic Current Visit: Yes (4) Depression SNOMED Code(s): 05096522 ICD Code: F32.9 - MAJOR DEPRESSIVE DISORDER, SINGLE EPISODE, UNSPECIFIED Status: Chronic Current Visit: Yes Qualifiers: Depression Type: major depressive disorder (5) Parkinson's disease SNOMED Code(s): 55717463 ICD Code: G20 - PARKINSON'S DISEASE Status: Chronic Priority: High Current Visit: No Problem Details: stable, cont. current meds (6) HTN, Benign essential hypertension SNOMED Code(s): 2505663 ICD Code: I10 - ESSENTIAL (PRIMARY) HYPERTENSION Status: Chronic Priority : Medium Current Visit: No Problem Details: cont. metoprolol (7) Sleep apnea SNOMED Code(s): 61237962 ICD Code: G47.30 - SLEEP APNEA, UNSPECIFIED Status: Chronic Priority: Medium Current Visit: No Problem Details: Pt. declines CPAP. (8) Dementia SNOMED Code(s): 74222131 ICD Code: F03.90 - UNSPECIFIED DEMENTIA WITHOUT BEHAVIORAL DISTURBANCE Status: Acute Current Visit: Yes Qualifiers: Dementia type: Alzheimer's disease Dementia behavioral disturbance: with behavioral disturbance Problem List Initiated/Reviewed/Updated: Yes Orders Last 24hrs: Active Orders 24 hr Category Date Time Status Patient Status [ADT] Routine ADT 10/19/17 18:02 Active Oxygen Therapy [RC] PRN Care 10/19/17 18:02 Active Up to Chair [RC] ASDIRECTED Care 10/19/17 18:02 Active VTE/DVT Education [RC] Per Unit Routine Care 10/19/17 18:02 Active Vital Signs [RC] 04,08,12,16,20,00 Care 10/19/17 18:02 Active BASIC METABOLIC PANEL,BMP [CHEM] AM Lab 10/21/17 05:11 Ordered CBC WITH AUTO DIFF [HEME] AM Lab 10/21/17 05:11 Ordered PRO B-TYPE NATRIUR PEPT,BNPPRO [CHEM] DAILY Lab 10/21/17 05:11 Ordered PRO B-TYPE NATRIUR PEPT,BNPPRO [CHEM] DAILY Lab 10/22/17 05:11 Ordered PRO B-TYPE NATRIUR PEPT,BNPPRO [CHEM] DAILY Lab 10/23/17 05:11 Ordered TROPONIN I [CHEM] AM Lab 10/21/17 05:11 Ordered UA W/MICROSCOPIC [URIN] Routine Lab 10/20/17 09:34 Ordered Acetaminophen [Tylenol] Med 10/20/17 07:49 Active 650 mg PO Q4H PRN Albuterol [Proventil Neb Soln] Med 10/19/17 18:02 Active 2.5 mg NEB Q2H PRN Amantadine [Symmetrel] Med 10/20/17 10:00 Active 50 mg PO BID@1000,1600 Azithromycin [Zithromax] 500 mg Med 10/20/17 09:45 Ordered Sodium Chloride 0.9% [Normal Saline] 250 ml IV Q24H Bisacodyl [Dulcolax] Med 10/19/17 21:09 Active 10 mg RECTAL Q72H PRN Carbidopa/Levodopa [Sinemet 25-100 mg] Med 10/20/17 13:00 Active 2.5 tab PO 13 Carbidopa/Levodopa [Sinemet 25-100 mg] Med 10/20/17 10:00 Active 2.5 tab PO DAILY@1000 Carbidopa/Levodopa [Sinemet 25-100 mg] Med 10/20/17 07:00 Active 3 tab PO BID@0700,1600 Carbidopa/Levodopa [Sinemet Cr 50-200 mg] Med 10/19/17 21:30 Active 1 tab PO QPM@1999 ClonazePAM [KlonoPIN] Med 10/19/17 22:00 Active 0.25 mg PO BEDTIME Diclofenac Sodium [Voltaren 1% Gel] Med 10/20/17 21:00 Active 2 gm TOP BEDTIME Docusate Sodium [Colace] Med 10/19/17 18:02 Active 100 mg PO BID PRN Docusate Sodium/Sennosides [Senna Plus] Med 10/21/17 08:00 Active 1 tab PO Q48H Furosemide [Lasix] Med 10/20/17 09:45 Ordered 40 mg IVPUSH BID Loperamide [Imodium AD] Med 10/19/17 21:09 Active 2 mg PO BID PRN Magnesium Hydroxide [Milk of Magnesia] Med 10/19/17 21:09 Active 30 ml PO DAILY PRN Memantine HCl [Namenda Xr] Med 10/20/17 09:00 Active 28 mg PO DAILY Non-Formulary Medication [NF Drug] Med 10/20/17 08:00 Active 0 each EYELF BID@0800,1999 Non-Formulary Medication [NF Drug] Med 10/20/17 09:00 Active 1 each TOP DAILY PARoxetine [Paxil] Med 10/20/17 16:00 Active 30 mg PO DAILY@1600 Pimavanserin Tartrate [Nuplazid] Med 10/19/17 22:15 Active 0 mg PO QPM@1999 Potassium Chloride [Klor-Con M20] Med 10/19/17 22:00 Active 20 meq PO QPM@1999 QUEtiapine [SEROquel XR] Med 10/19/17 22:15 Active 25 mg PO BID@0800,2000 Rivastigmine [Rivastigmine] Med 10/21/17 09:00 Ordered 13.3 mg TRDERM DAILY Timolol Maleate/PF [Timoptic 0.5% Ocudose Drop] Med 10/20/17 20:00 Ordered 2 drop EYELF BID@08,20 cefTRIAXone [Rocephin] Med 10/19/17 21:00 Active 1,000 mg IVPUSH Q24H guaiFENesin [Robitussin] Med 10/19/17 21:09 Active 200 mg PO Q4H PRN Resuscitation Status Routine Resus Stat 10/19/17 18:02 Ordered Medication Orders Acetaminophen (Tylenol) 650 mg PO Q4H PRN PRN Reason: Pain Albuterol (Proventil Neb Soln) 2.5 mg NEB Q2H PRN PRN Reason: Shortness Of Breath/wheezing Last Admin: 10/20/17 07:59 Dose: 2.5 mg Admin: 10/19/17 22:00 Dose: 2.5 mg Amantadine HCl (Symmetrel) 50 mg PO BID@1000,1600 [facility] Last Admin: 10/20/17 09:25 Dose: 50 mg Bisacodyl (Dulcolax) 10 mg RECTAL Q72H PRN PRN Reason: Constipation Carbidopa/Levodopa (Sinemet 25-100 Mg) 2.5 tab PO 13 MARKOS Carbidopa/Levodopa (Sinemet Cr 50-200 Mg) 1 tab PO QPM@2000 [facility] Last Admin: 10/19/17 22:21 Dose: 1 tab Carbidopa/Levodopa (Sinemet 25-100 Mg) 2.5 tab PO DAILY@1000 [facility] Last Admin: 10/20/17 09:23 Dose: 2.5 tab Carbidopa/Levodopa (Sinemet 25-100 Mg) 3 tab PO BID@0700,1600 [facility] Last Admin: 10/20/17 06:20 Dose: 3 tab Ceftriaxone Sodium (Rocephin) 1,000 mg IVPUSH Q24H [facility] Last Admin: 10/19/17 20:52 Dose: 1,000 mg Clonazepam (Klonopin) 0.25 mg PO BEDTIME [facility] Last Admin: 10/19/17 22:21 Dose: 0.25 mg Diclofenac Sodium (Voltaren 1% Gel) 2 gm TOP BEDTIME [facility] Docusate Sodium (Colace) 100 mg PO BID PRN PRN Reason: Constipation Furosemide (Lasix) 40 mg IVPUSH BID [facility] Guaifenesin (Robitussin) 200 mg PO Q4H PRN PRN Reason: Cough Last Admin: 10/20/17 02:07 Dose: 200 mg Azithromycin 500 mg/ Sodium (Chloride) 250 mls @ 250 mls/hr IV Q24H [facility] Loperamide HCl (Imodium Ad) 2 mg PO BID PRN PRN Reason: Diarrhea Magnesium Hydroxide (Milk Of Magnesia) 30 ml PO DAILY PRN PRN Reason: Constipation Memantine (Namenda Xr) 28 mg PO DAILY [facility] Last Admin: 10/20/17 09:22 Dose: 28 mg Pimavanserin Tartrate [Nuplazid] 17 Mg TabOwn Med 0 mg PO QPM@1999 [facility] Last Admin: 10/19/17 22:24 Dose: 34 mg Rivastigmine Patch (13.3mg/24 Hr *Prom) 1 each TOP DAILY [facility] Last Admin: 10/20/17 09:23 Dose: 1 each Timoptic Ocudose 0.5 (% Ptom) 0 each EYELF BID@ [facility] Last Admin: 10/20/17 09:21 Dose: 1 each Non-Formulary Medication (Rivastigmine [Rivastigmine]) 13.3 mg TRDERM DAILY [facility] Non-Formulary Medication (Timolol Maleate/Pf [Timoptic 0.5% Ocudose Drop]) 2 drop EYELF BID@08 [facility] Paroxetine HCl (Paxil) 30 mg PO DAILY@1600 [facility] Potassium Chloride (Klor-Con M20) 20 meq PO QPM@1999 [facility] Last Admin: 10/19/17 22:22 Dose: 20 meq Quetiapine Fumarate (Seroquel Xr) 25 mg PO BID@ [facility] Last Admin: 10/20/17 09:21 Dose: 25 mg Admin: 10/19/17 22:25 Dose: 25 mg Senna/Docusate Sodium (Senna Plus) 1 tab PO Q48H [facility] Assessment/Plan Comment:: Admit the patient,as an in pateint, I will discontinue the IV fluids and give Lasix. I'll continued IV antibiotic for now and SVNs for comfort. I will repeat CBC basic profile and BNP in the morning and continue and resume her home medications. Continue regular diet, and DVT prophylaxis.
[2017-10-20] MEDS ORDERED: AMANTADINE PO SCH (10:00)
[2017-10-20] MEDS: Furosemide 40 MG/4 ML VIAL IVPUSH SCH ×2 (10:23→16:27)
[2017-10-20] MEDS: Azithromycin 500 MG in Sodium Chloride 0.9% 250 ML IV SCH (10:32)
[2017-10-20] MEDS ORDERED: TIMOLOL MALEATE EYELF SCH (20:00)
[2017-10-20] MEDS ORDERED: Carbidopa/Levodopa 50-200 MG Tab.ER PO SCH (20:00)
[2017-10-20] MEDS ORDERED: [UNRECOGNIZED DRUG - OTHER] EYELF SCH (20:00)
[2017-10-20] MEDS ORDERED: Non-Formulary Medication 1 Each (Potassium Chloride [Potassium Chloride] 20 MEQ) PO SCH (20:00)
[2017-10-20] MEDS ORDERED: PIMAVANSERIN TARTRATE 34 MG PO SCH (20:00)
[2017-10-20] MEDS: Potassium Chloride 20 MEQ Tab.ER PO SCH (20:08)
[2017-10-20] MEDS: PIMAVANSERIN TARTRATE 17 MG PO SCH (20:09)
[2017-10-20] MEDS: Carbidopa/Levodopa 50-200 MG Tab.ER PO SCH (20:12)
[2017-10-20] MEDS: ClonazePAM 0.5 MG Tab PO SCH (20:17)
[2017-10-20] MEDS: Diclofenac Sodium 1% Gel 100 GM Tube TOP SCH (20:18)
[2017-10-20] MEDS: cefTRIAXone 1,000 MG VIAL IVPUSH SCH (20:19)
[2017-10-20] MEDS ORDERED: Non-Formulary Medication 1 Each (Clonazepam [Klonopin] 0.25 MG) PO SCH (21:00)
[2017-10-20] MEDS ORDERED: ClonazePAM 0.5 MG Tab PO SCH (21:00)
[2017-10-21] MEDS: Carbidopa/Levodopa 25-100 MG Tab PO SCH ×4 (06:13→17:07)
[2017-10-21] MEDS: Furosemide 40 MG/4 ML VIAL IVPUSH SCH ×2 (08:10→13:43)
[2017-10-21] MEDS: RIVASTIGMINE 13.3 MG/24 HR TOP SCH (08:11)
[2017-10-21] MEDS: QUEtiapine 50 MG Tab.SR PO SCH ×2 (08:12→20:16)
[2017-10-21] MEDS: TIMOPTIC OCUDOSE EYELF SCH ×2 (08:12→20:15)
[2017-10-21] MEDS: Memantine HCl 28 MG CAP.ER PO SCH (08:13)
[2017-10-21] MEDS: Sodium Chloride 0.9% 10 ML Syringe FLUSH PRN ×3 (08:20→20:17)
--- NOTE | 2017-10-21 08:46 | PCM.PN ---
- General Info Date of Service: 10/21/17 Subjective Update: Tanna slept better overnight. Still has a cough especially when she lays flat. She's also been confused in the evenings and at night. No fever chest pain, nausea vomiting. She is noted to have diarrhea at times. And she is incontinent of urine chronically. Functional Status: Reports: Pain Controlled, Tolerating Diet - Review of Systems General: Reports: No Symptoms HEENT: Reports: No Symptoms Pulmonary: Reports: Cough Cardiovascular: Reports: No Symptoms Gastrointestinal: Reports: Diarrhea Psychiatric: Reports: Confusion - Patient Data Vitals - Most Recent: Last Vital Signs Temp 98.0 F 10/21/17 03:44 Pulse 70 10/21/17 03:44 Resp 22 H 10/21/17 03:44 BP 119/65 10/21/17 03:44 Pulse Ox 94 L 10/21/17 03:44 Weight - Most Recent: 67.495 kg Lab Results Last 24 Hours: Laboratory Results - last 24 hr 10/21/17 10/21/17 10/21/17 Range/Units 06:23 06:23 06:23 WBC 10.4 (4.5-12.0) X10-3/uL RBC 3.79 (3.23-5.20) x10(6)uL Hgb 10.3 L (11.5-15.5) g/dL Hct 32.5 (30.0-51.3) % MCV 85.9 (80-96) fL MCH 27.1 L (27.7-33.6) pg MCHC 31.5 L (32.2-35.4) g/dL RDW 18.1 H (11.5-15.5) % Plt Count 345 (125-369) X10(3)uL MPV 8.9 (7.4-10.4) fL Neut % (Auto) 75.7 (46-82) % Lymph % (Auto) 15.3 (13-37) % Barton % (Auto) 8.3 (4-12) % Eos % (Auto) 1 (1.0-5.0) % Baso % (Auto) 0 (0-2) % Neut # (Auto) 7.8 (1.6-8.3) # Lymph # (Auto) 1.6 (0.6-5.0) # Barton # (Auto) 0.9 (0.0-1.3) # Eos # (Auto) 0.1 (0.0-0.8) # Baso # (Auto) 0.0 (0.0-0.2) # Sodium 141 (135-145) mmol/L Potassium 3.4 L (3.5-5.3) mmol/L Chloride 103 (100-110) mmol/L Carbon Dioxide 30 (21-32) mmol/L BUN 15 (7-18) mg/dL Creatinine 0.8 (0.55-1.02) mg/dL Est Cr Clr Drug Dosing 34.91 mL/min Estimated GFR (MDRD) > 60 (>60) BUN/Creatinine Ratio 18.8 (9-20) Glucose 99 (80-116) mg/dL Calcium 8.8 (8.6-10.2) mg/dL Troponin I < 0.017 L (<0.017-0.056) ng/mL NT-Pro-B Natriuret Pep 4347 H* (<=450) pg/mL Med Orders - Current: Current Medications Acetaminophen (Tylenol) 650 mg PO Q4H PRN PRN Reason: Pain Albuterol (Proventil Neb Soln) 2.5 mg NEB Q2H PRN PRN Reason: Shortness Of Breath/wheezing Last Admin: 10/20/17 14:05 Dose: 2.5 mg Amantadine HCl (Symmetrel) 50 mg PO BID@1000,1600 [facility] Last Admin: 10/20/17 16:30 Dose: 50 mg Bisacodyl (Dulcolax) 10 mg RECTAL Q72H PRN PRN Reason: Constipation Carbidopa/Levodopa (Sinemet 25-100 Mg) 2.5 tab PO 13 [facility] Last Admin: 10/20/17 13:31 Dose: 2.5 tab Carbidopa/Levodopa (Sinemet Cr 50-200 Mg) 1 tab PO QPM@2000 [facility] Last Admin: 10/20/17 20:12 Dose: 1 tab Carbidopa/Levodopa (Sinemet 25-100 Mg) 2.5 tab PO DAILY@1000 [facility] Last Admin: 10/20/17 09:23 Dose: 2.5 tab Carbidopa/Levodopa (Sinemet 25-100 Mg) 3 tab PO BID@0700,1600 [facility] Last Admin: 10/21/17 06:13 Dose: 3 tab Ceftriaxone Sodium (Rocephin) 1,000 mg IVPUSH Q24H [facility] Last Admin: 10/20/17 20:19 Dose: 1,000 mg Clonazepam (Klonopin) 0.25 mg PO BEDTIME [facility] Last Admin: 10/20/17 20:17 Dose: 0.25 mg Diclofenac Sodium (Voltaren 1% Gel) 2 gm TOP BEDTIME [facility] Last Admin: 10/20/17 20:18 Dose: 2 gm Docusate Sodium (Colace) 100 mg PO BID PRN PRN Reason: Constipation Furosemide (Lasix) 40 mg IVPUSH BIDDIURETIC [facility] Last Admin: 10/21/17 08:10 Dose: 40 mg Guaifenesin (Robitussin) 200 mg PO Q4H PRN PRN Reason: Cough Last Admin: 10/20/17 02:07 Dose: 200 mg Azithromycin 500 mg/ Sodium (Chloride) 250 mls @ 250 mls/hr IV Q24H [facility] Last Admin: 10/20/17 10:32 Dose: 250 mls/hr Loperamide HCl (Imodium Ad) 2 mg PO BID PRN PRN Reason: Diarrhea Magnesium Hydroxide (Milk Of Magnesia) 30 ml PO DAILY PRN PRN Reason: Constipation Memantine (Namenda Xr) 28 mg PO DAILY [facility] Last Admin: 10/21/17 08:13 Dose: 28 mg Pimavanserin Tartrate [Nuplazid] 17 Mg TabOwn Med 0 mg PO QPM@1999 [facility] Last Admin: 10/20/17 20:09 Dose: 34 mg Rivastigmine Patch (13.3mg/24 Hr *Prom) 1 each TOP DAILY [facility] Last Admin: 10/21/17 08:11 Dose: 1 each Timoptic Ocudose 0.5 (% Ptom) 0 each EYELF BID@ [facility] Last Admin: 10/21/17 08:12 Dose: 1 each Paroxetine HCl (Paxil) 30 mg PO DAILY@1600 [facility] Last Admin: 10/20/17 16:31 Dose: 30 mg Potassium Chloride (Klor-Con M20) 20 meq PO QPM@1999 [facility] Last Admin: 10/20/17 20:08 Dose: 20 meq Quetiapine Fumarate (Seroquel Xr) 25 mg PO BID@0800,1999 [facility] Last Admin: 10/21/17 08:12 Dose: 25 mg Senna/Docusate Sodium (Senna Plus) 1 tab PO Q48H [facility] Last Admin: 10/21/17 08:08 Dose: Not Given Sodium Chloride (Saline Flush) 10 ml FLUSH ASDIRECTED PRN PRN Reason: Keep Vein Open Last Admin: 10/21/17 08:20 Dose: 10 ml Discontinued Medications Acetaminophen (Tylenol Arthritis Pain) 650 mg PO Q4H PRN PRN Reason: Pain Albuterol/Ipratropium (Duoneb 3.0-0.5 Mg/3 Ml) 3 ml NEB ONETIME ONE Stop: 10/19/17 16:14 Last Admin: 10/19/17 17:12 Dose: 3 ml Carbidopa/Levodopa (Sinemet 25-100 Mg) 2.5 tab PO 10 [facility] Carbidopa/Levodopa (Sinemet 25-100 Mg) 3 tab PO 07,16 [facility] Clonazepam (Klonopin) 0.25 mg PO BEDTIME [facility] Sodium Chloride (Normal Saline) 500 mls @ 999 mls/hr IV .BOLUS ONE Stop: 10/19/17 18:10 Last Admin: 10/19/17 20:11 Dose: 999 mls/hr Lactated Ringer's (Ringers, Lactated) 1,000 mls @ 125 mls/hr IV ASDIRECTED [facility] Last Infusion: 10/20/17 09:15 Dose: 0 mls/hr Ceftriaxone Sodium 1,000 mg/ (Sodium Chloride) 50 mls @ 100 mls/hr IV Q24H [facility] Non-Formulary Medication (Amantadine [Symmetrel]) 50 mg PO 10,16 [facility] Non-Formulary Medication (Clonazepam [Klonopin]) 0.25 mg PO BEDTIME [facility] Non-Formulary Medication (Memantine Hcl) 28 mg PO DAILY [facility] Non-Formulary Medication (Pimavanserin Tartrate [Nuplazid]) 34 mg PO 20 [facility] Non-Formulary Medication (Potassium Chloride [Potassium Chloride]) 20 meq PO 20 [facility] Non-Formulary Medication (Timolol [Betimol 0.5% Ophth Soln]) 2 drop EYELF 08, 20 [facility] Paroxetine HCl (Paxil) 30 mg PO 16 [facility] Quetiapine Fumarate (Seroquel Xr) 25 mg PO 08,20 [facility] Rivastigmine (Exelon) 13.3 mg TRDERM DAILY [facility] Senna/Docusate Sodium (Senna Plus) 1 tab PO Q48H [facility] Last Admin: 10/19/17 21:55 Dose: Not Given Timolol Maleate (Timoptic 0.5% Ophth Soln) 0 ml EYELF BID@0800,2000 [facility] Timolol Maleate (Timoptic 0.5% Ophth Soln) 0 ml EYELF BID@0800,1999 [facility] Last Admin: 10/19/17 22:22 Dose: 2 drop - Exam General: Alert. No: Oriented Lungs: Crackles, Rales, Rhonchi Cardiovascular: Regular Rate, Regular Rhythm GI/Abdominal Exam: Normal Bowel Sounds, Soft, Non-Tender, No Organomegaly, No Distention, No Abnormal Bruit, No Mass, Pelvis Stable Extremities: Normal Inspection, Normal Range of Motion, Non-Tender, No Pedal Edema, Normal Capillary Refill - Problem List & Annotations (1) CHF (congestive heart failure) SNOMED Code(s): 57659827 Code(s): I50.9 - HEART FAILURE, UNSPECIFIED Status: Acute Current Visit: Yes Qualifiers: Heart failure chronicity: unspecified (2) Pneumonia SNOMED Code(s): 764859136 Code(s): J18.9 - PNEUMONIA, UNSPECIFIED ORGANISM Status: Acute Current Visit: Yes Qualifiers: Lung location: middle lobe of lung (3) Anxiety SNOMED Code(s): 79592093 Code(s): F41.9 - ANXIETY DISORDER, UNSPECIFIED Status: Chronic Current Visit: Yes (4) Depression SNOMED Code(s): 41124722 Code(s): F32.9 - MAJOR DEPRESSIVE DISORDER, SINGLE EPISODE, UNSPECIFIED Status: Chronic Current Visit: Yes Qualifiers: Depression Type: major depressive disorder Psychotic features: with psychotic features (5) Parkinson's disease SNOMED Code(s): 83161745 Code(s): G20 - PARKINSON'S DISEASE Status: Chronic Priority: High Current Visit: No Annotation/Comment:: stable, cont. current meds (6) HTN, Benign essential hypertension SNOMED Code(s): 3516142 Code(s): I10 - ESSENTIAL (PRIMARY) HYPERTENSION Status: Chronic Priority : Medium Current Visit: No Annotation/Comment:: cont. metoprolol (7) Sleep apnea SNOMED Code(s): 45932991 Code(s): G47.30 - SLEEP APNEA, UNSPECIFIED Status: Chronic Priority: Medium Current Visit: No Annotation/Comment:: Pt. declines CPAP. (8) Dementia SNOMED Code(s): 72085605 Code(s): F03.90 - UNSPECIFIED DEMENTIA WITHOUT BEHAVIORAL DISTURBANCE Status: Acute Current Visit: Yes Qualifiers: Dementia type: Alzheimer's disease Dementia behavioral disturbance: with behavioral disturbance - Problem List Review Problem List Initiated/Reviewed/Updated: Yes - My Orders Last 24 Hours: My Active Orders 10/20/17 09:45 Furosemide [Lasix] 40 mg IVPUSH BIDDIURETIC 10/20/17 10:00 Azithromycin [Zithromax] 500 mg Sodium Chloride 0.9% [Normal Saline] 250 ml IV Q24H 10/20/17 10:21 Sodium Chloride 0.9% [Saline Flush] 10 ml FLUSH ASDIRECTED PRN 10/21/17 08:42 CXR [Chest 2V] [CR] Routine 10/22/17 05:11 BASIC METABOLIC PANEL,BMP [CHEM] AM PRO B-TYPE NATRIUR PEPT,BNPPRO [CHEM] DAILY 10/23/17 05:11 PRO B-TYPE NATRIUR PEPT,BNPPRO [CHEM] DAILY - Plan Plan:: Obtain a repeat chest x-ray and unofficial report. Continue IV Lasix and IV antibiotics. I anticipate discharge tomorrow or Sunday.
[2017-10-21] MEDS ORDERED: RIVASTIGMINE 13.3 MG TRDERM SCH (09:00)
[2017-10-21] MEDS ORDERED: Metolazone 5 MG Tab PO ONE (09:23)
[2017-10-21] MEDS ORDERED: Metolazone 2.5 MG Tab PO ONE (10:00)
[2017-10-21] MEDS: Azithromycin 500 MG in Sodium Chloride 0.9% 250 ML IV SCH (10:15)
[2017-10-21] MEDS: AMANTADINE 100 MG PO SCH ×2 (10:15→17:07)
[2017-10-21] MEDS: Potassium Chloride 20 MEQ Tab.ER PO SCH (20:14)
[2017-10-21] MEDS: PIMAVANSERIN TARTRATE 17 MG PO SCH (20:14)
[2017-10-21] MEDS: Carbidopa/Levodopa 50-200 MG Tab.ER PO SCH (20:16)
[2017-10-21] MEDS: Diclofenac Sodium 1% Gel 100 GM Tube TOP SCH (20:17)
[2017-10-21] MEDS: cefTRIAXone 1,000 MG VIAL IVPUSH SCH (20:17)
[2017-10-21] MEDS: ClonazePAM 0.5 MG Tab PO SCH (20:17)
[2017-10-22] MEDS: guaiFENesin 100 MG/5 ML Soln 5 ML UD Cup PO PRN (04:19)
[2017-10-22] MEDS: Carbidopa/Levodopa 25-100 MG Tab PO SCH ×4 (06:26→16:05)
[2017-10-22] MEDS: Furosemide 40 MG/4 ML VIAL IVPUSH SCH ×2 (08:34→13:53)
[2017-10-22] MEDS: Sodium Chloride 0.9% 10 ML Syringe FLUSH PRN ×2 (08:34→13:53)
[2017-10-22] MEDS: TIMOPTIC OCUDOSE EYELF SCH ×2 (08:35→20:07)
[2017-10-22] MEDS: QUEtiapine 50 MG Tab.SR PO SCH ×2 (08:36→20:09)
[2017-10-22] MEDS: RIVASTIGMINE 13.3 MG/24 HR TOP SCH (08:37)
[2017-10-22] MEDS: Memantine HCl 28 MG CAP.ER PO SCH (08:37)
--- NOTE | 2017-10-22 09:14 | CR ---
INDICATION: Wheezy, decreased breath sounds. CHEST: A single AP upright view of the chest was obtained in a wheelchair with a poor inspiration, 10/19/2017, and compared with 05/17/2015 and 04/14/2015 The heart appears enlarged, but is emphasized by the poor inspiration and AP positioning. The aorta is tortuous. There is an appearance suggesting heavy markings in the mid lung field to upper lung field on the right and at the lung base on the left. This makes it difficult to exclude areas of patchy bronchopneumonia. Heavy markings seen on the previous study at the right lung base have improved significantly, suggesting the possibility of resolving acute pulmonary edema and /or pneumonia in that area. The lungs appear somewhat hyperaerated. No gross consolidating pneumonia or definite effusion was seen. Healed rib fracture noted on the right posterolaterally. IMPRESSION: 1. Cannot exclude areas of pneumonia with heavy markings present emphasized by poor inspiration - full inspiration PA and lateral views of the chest may be helpful when clinically possible. 2. Resolving pneumonia and/or edema at the right lung base. 2. ASHD, possible cardiomegaly. 3. Cannot exclude COPD. Report was called to Dr. Ramos at 1705 hours, 10/19/2017. [facility]
[2017-10-22] MEDS ORDERED: Metolazone 2.5 MG Tab PO SCH (09:15)
--- NOTE | 2017-10-22 09:18 | PCM.PN ---
- General Info Date of Service: 10/22/17 Functional Status: Reports: Tolerating Diet. Denies: New Symptoms - Review of Systems General: Reports: No Symptoms HEENT: Reports: No Symptoms Pulmonary: Reports: Shortness of Breath, Cough Cardiovascular: Reports: Orthopnea Gastrointestinal: Reports: No Symptoms Genitourinary: Reports: No Symptoms - Patient Data Vitals - Most Recent: Last Vital Signs Temp 98.4 F 10/22/17 03:30 Pulse 66 10/22/17 03:30 Resp 20 10/22/17 03:30 BP 110/63 10/22/17 03:30 Pulse Ox 90 L 10/22/17 03:30 Weight - Most Recent: 67.495 kg I&O - Last 24 Hours: Intake & Output 10/21/17 10/22/17 10/22/17 22:59 06:59 14:59 Intake Total 240 Balance 240 Lab Results Last 24 Hours: Laboratory Results - last 24 hr 10/22/17 10/22/17 Range/Units 06:38 06:38 Sodium 137 (135-145) mmol/L Potassium 2.9 L (3.5-5.3) mmol/L Chloride 95 L D (100-110) mmol/L Carbon Dioxide 34 H (21-32) mmol/L BUN 15 (7-18) mg/dL Creatinine 0.8 (0.55-1.02) mg/dL Est Cr Clr Drug Dosing 34.91 mL/min Estimated GFR (MDRD) > 60 (>60) BUN/Creatinine Ratio 18.8 (9-20) Glucose 92 (80-116) mg/dL Calcium 8.8 (8.6-10.2) mg/dL NT-Pro-B Natriuret Pep 4199 H* (<=450) pg/mL Med Orders - Current: Current Medications Acetaminophen (Tylenol) 650 mg PO Q4H PRN PRN Reason: Pain Albuterol (Proventil Neb Soln) 2.5 mg NEB Q2H PRN PRN Reason: Shortness Of Breath/wheezing Last Admin: 10/20/17 14:05 Dose: 2.5 mg Amantadine HCl (Symmetrel) 50 mg PO BID@1000,1600 [facility] Last Admin: 10/21/17 17:07 Dose: 50 mg Bisacodyl (Dulcolax) 10 mg RECTAL Q72H PRN PRN Reason: Constipation Carbidopa/Levodopa (Sinemet 25-100 Mg) 2.5 tab PO 13 [facility] Last Admin: 10/21/17 13:39 Dose: 2.5 tab Carbidopa/Levodopa (Sinemet Cr 50-200 Mg) 1 tab PO QPM@1999 [facility] Last Admin: 10/21/17 20:16 Dose: 1 tab Carbidopa/Levodopa (Sinemet 25-100 Mg) 2.5 tab PO DAILY@1000 [facility] Last Admin: 10/21/17 10:14 Dose: 2.5 tab Carbidopa/Levodopa (Sinemet 25-100 Mg) 3 tab PO BID@0700,1600 [facility] Last Admin: 10/22/17 06:26 Dose: 3 tab Ceftriaxone Sodium (Rocephin) 1,000 mg IVPUSH Q24H [facility] Last Admin: 10/21/17 20:17 Dose: 1,000 mg Clonazepam (Klonopin) 0.25 mg PO BEDTIME [facility] Last Admin: 10/21/17 20:17 Dose: 0.25 mg Diclofenac Sodium (Voltaren 1% Gel) 2 gm TOP BEDTIME [facility] Last Admin: 10/21/17 20:17 Dose: 2 gm Docusate Sodium (Colace) 100 mg PO BID PRN PRN Reason: Constipation Furosemide (Lasix) 40 mg IVPUSH BIDDIURETIC [facility] Last Admin: 10/22/17 08:34 Dose: 40 mg Guaifenesin (Robitussin) 200 mg PO Q4H PRN PRN Reason: Cough Last Admin: 10/22/17 04:19 Dose: 200 mg Azithromycin 500 mg/ Sodium (Chloride) 250 mls @ 250 mls/hr IV Q24H [facility] Last Admin: 10/21/17 10:15 Dose: 250 mls/hr Loperamide HCl (Imodium Ad) 2 mg PO BID PRN PRN Reason: Diarrhea Magnesium Hydroxide (Milk Of Magnesia) 30 ml PO DAILY PRN PRN Reason: Constipation Memantine (Namenda Xr) 28 mg PO DAILY [facility] Last Admin: 10/22/17 08:37 Dose: 28 mg Metolazone (Zaroxolyn) 2.5 mg PO DAILY [facility] Pimavanserin Tartrate [Nuplazid] 17 Mg TabOwn Med 0 mg PO QPM@1999 [facility] Last Admin: 10/21/17 20:14 Dose: 34 mg Rivastigmine Patch (13.3mg/24 Hr *Prom) 1 each TOP DAILY [facility] Last Admin: 10/22/17 08:37 Dose: 1 each Timoptic Ocudose 0.5 (% Ptom) 0 each EYELF BID@799,1999 [facility] Last Admin: 10/22/17 08:35 Dose: 1 each Paroxetine HCl (Paxil) 30 mg PO DAILY@1600 [facility] Last Admin: 10/21/17 17:08 Dose: 30 mg Potassium Chloride (Klor-Con M20) 20 meq PO BID [facility] Quetiapine Fumarate (Seroquel Xr) 25 mg PO BID@799,1999 [facility] Last Admin: 10/22/17 08:36 Dose: 25 mg Senna/Docusate Sodium (Senna Plus) 1 tab PO Q48H [facility] Last Admin: 10/21/17 08:08 Dose: Not Given Sodium Chloride (Saline Flush) 10 ml FLUSH ASDIRECTED PRN PRN Reason: Keep Vein Open Last Admin: 10/22/17 08:34 Dose: 10 ml Discontinued Medications Acetaminophen (Tylenol Arthritis Pain) 650 mg PO Q4H PRN PRN Reason: Pain Albuterol/Ipratropium (Duoneb 3.0-0.5 Mg/3 Ml) 3 ml NEB ONETIME ONE Stop: 10/19/17 16:14 Last Admin: 10/19/17 17:12 Dose: 3 ml Carbidopa/Levodopa (Sinemet 25-100 Mg) 2.5 tab PO 10 [facility] Carbidopa/Levodopa (Sinemet 25-100 Mg) 3 tab PO 07,16 [facility] Clonazepam (Klonopin) 0.25 mg PO BEDTIME [facility] Sodium Chloride (Normal Saline) 500 mls @ 999 mls/hr IV .BOLUS ONE Stop: 10/19/17 18:10 Last Admin: 10/19/17 20:11 Dose: 999 mls/hr Lactated Ringer's (Ringers, Lactated) 1,000 mls @ 125 mls/hr IV ASDIRECTED [facility] Last Infusion: 10/20/17 09:15 Dose: 0 mls/hr Ceftriaxone Sodium 1,000 mg/ (Sodium Chloride) 50 mls @ 100 mls/hr IV Q24H [facility] Metolazone (Zaroxolyn) 5 mg PO ONETIME ONE Stop: 10/21/17 09:24 Last Admin: 10/21/17 10:14 Dose: Not Given Metolazone (Zaroxolyn) 5 mg PO ONETIME ONE Stop: 10/21/17 10:01 Last Admin: 10/21/17 10:15 Dose: 5 mg Non-Formulary Medication (Amantadine [Symmetrel]) 50 mg PO 10,16 [facility] Non-Formulary Medication (Clonazepam [Klonopin]) 0.25 mg PO BEDTIME [facility] Non-Formulary Medication (Memantine Hcl) 28 mg PO DAILY [facility] Non-Formulary Medication (Pimavanserin Tartrate [Nuplazid]) 34 mg PO 20 [facility] Non-Formulary Medication (Potassium Chloride [Potassium Chloride]) 20 meq PO 20 [facility] Non-Formulary Medication (Timolol [Betimol 0.5% Ophth Soln]) 2 drop EYELF 08, 20 [facility] Paroxetine HCl (Paxil) 30 mg PO 16 [facility] Potassium Chloride (Klor-Con M20) 20 meq PO QPM@1999 [facility] Last Admin: 10/21/17 20:14 Dose: 20 meq Quetiapine Fumarate (Seroquel Xr) 25 mg PO 08,20 [facility] Rivastigmine (Exelon) 13.3 mg TRDERM DAILY [facility] Senna/Docusate Sodium (Senna Plus) 1 tab PO Q48H [facility] Last Admin: 10/19/17 21:55 Dose: Not Given Timolol Maleate (Timoptic 0.5% Ophth Soln) 0 ml EYELF BID@0800,1999 [facility] Timolol Maleate (Timoptic 0.5% Ophth Soln) 0 ml EYELF BID@0800,1999 [facility] Last Admin: 10/19/17 22:22 Dose: 2 drop - Exam Quality Assessment: Supplemental Oxygen General: Alert, Cooperative, No Acute Distress. No: Oriented HEENT: Pupils Equal, Pupils Reactive, EOMI, Mucous Membr. Moist/[place] Lungs: Decreased Breath Sounds, Rhonchi Cardiovascular: Regular Rate - Problem List & Annotations (1) CHF (congestive heart failure) SNOMED Code(s): 10623379 Code(s): I50.9 - HEART FAILURE, UNSPECIFIED Status: Acute Current Visit: Yes Qualifiers: Heart failure chronicity: unspecified (2) Pneumonia SNOMED Code(s): 014095881 Code(s): J18.9 - PNEUMONIA, UNSPECIFIED ORGANISM Status: Acute Current Visit: Yes Qualifiers: Lung location: middle lobe of lung (3) Anxiety SNOMED Code(s): 61660320 Code(s): F41.9 - ANXIETY DISORDER, UNSPECIFIED Status: Chronic Current Visit: Yes (4) Depression SNOMED Code(s): 44479864 Code(s): F32.9 - MAJOR DEPRESSIVE DISORDER, SINGLE EPISODE, UNSPECIFIED Status: Chronic Current Visit: Yes Qualifiers: Depression Type: major depressive disorder Psychotic features: with psychotic features (5) Parkinson's disease SNOMED Code(s): 10540436 Code(s): G20 - PARKINSON'S DISEASE Status: Chronic Priority: High Current Visit: No Annotation/Comment:: stable, cont. current meds (6) HTN, Benign essential hypertension SNOMED Code(s): 5424463 Code(s): I10 - ESSENTIAL (PRIMARY) HYPERTENSION Status: Chronic Priority : Medium Current Visit: No Annotation/Comment:: cont. metoprolol (7) Sleep apnea SNOMED Code(s): 29627058 Code(s): G47.30 - SLEEP APNEA, UNSPECIFIED Status: Chronic Priority: Medium Current Visit: No Annotation/Comment:: Pt. declines CPAP. (8) Dementia SNOMED Code(s): 70837704 Code(s): F03.90 - UNSPECIFIED DEMENTIA WITHOUT BEHAVIORAL DISTURBANCE Status: Acute Current Visit: Yes Qualifiers: Dementia type: Alzheimer's disease Dementia behavioral disturbance: with behavioral disturbance (9) Hypokalemia SNOMED Code(s): 30571002 Code(s): E87.6 - HYPOKALEMIA Status: Acute Current Visit: Yes - Problem List Review Problem List Initiated/Reviewed/Updated: Yes - My Orders Last 24 Hours: My Active Orders 10/21/17 09:00 Chest 1V Frontal [CR] Routine 10/22/17 09:15 Metolazone [Zaroxolyn] 2.5 mg PO DAILY Potassium Chloride [Klor-Con M20] 20 meq PO BID 10/23/17 05:11 BASIC METABOLIC PANEL,BMP [CHEM] AM CBC WITH AUTO DIFF [HEME] AM PRO B-TYPE NATRIUR PEPT,BNPPRO [CHEM] DAILY - Plan Plan:: Chest x-ray showed worsening infiltrates suggestive of CHF rather than pneumonia. I've added metolazone today and repeat electrolytes in the morning. Doesn't was 2.9, I've increased the potassium chloride supplementation to twice a day. She's currently on oxygenation to keep oxygen saturation above 90-92%. I will discontinue azithromycin today.
[2017-10-22] MEDS: AMANTADINE 100 MG PO SCH ×2 (09:58→16:06)
[2017-10-22] MEDS: Albuterol 0.083% 2.5 MG/3 ML Neb Soln NEB PRN ×3 (10:03→20:12)
[2017-10-22] MEDS: Potassium Chloride 20 MEQ Tab.ER PO SCH ×2 (10:42→20:09)
[2017-10-22] MEDS: PIMAVANSERIN TARTRATE 17 MG PO SCH (20:08)
[2017-10-22] MEDS: Carbidopa/Levodopa 50-200 MG Tab.ER PO SCH (20:10)
[2017-10-22] MEDS: Diclofenac Sodium 1% Gel 100 GM Tube TOP SCH (20:11)
[2017-10-22] MEDS: cefTRIAXone 1,000 MG VIAL IVPUSH SCH (20:11)
[2017-10-22] MEDS: ClonazePAM 0.5 MG Tab PO SCH (20:14)
--- NOTE | 2017-10-23 09:58 | PCM.PN ---
- General Info Date of Service: 10/23/17 Subjective Update: Off O2. Much Less coughing. - Review of Systems HEENT: Reports: No Symptoms Gastrointestinal: Reports: Diarrhea Genitourinary: Reports: No Symptoms - Patient Data Vitals - Most Recent: Last Vital Signs Temp 97.4 F 10/23/17 08:00 Pulse 70 10/23/17 08:00 Resp 20 10/23/17 08:00 BP 114/54 L 10/23/17 08:00 Pulse Ox 97 10/23/17 08:00 Weight - Most Recent: 67.495 kg I&O - Last 24 Hours: Intake & Output 10/22/17 10/23/17 10/23/17 22:59 06:59 14:59 Intake Total 100 540 Balance 100 540 Lab Results Last 24 Hours: Laboratory Results - last 24 hr 10/23/17 10/23/17 10/23/17 Range/Units 06:25 06:25 06:25 WBC 6.9 (4.5-12.0) X10-3/uL RBC 3.79 (3.23-5.20) x10(6)uL Hgb 10.3 L (11.5-15.5) g/dL Hct 32.3 (30.0-51.3) % MCV 85.3 (80-96) fL MCH 27.1 L (27.7-33.6) pg MCHC 31.8 L (32.2-35.4) g/dL RDW 17.1 H (11.5-15.5) % Plt Count 377 H (125-369) X10(3)uL MPV 8.7 (7.4-10.4) fL Neut % (Auto) 61.5 (46-82) % Lymph % (Auto) 24.8 (13-37) % Ector % (Auto) 11.2 (4-12) % Eos % (Auto) 2 (1.0-5.0) % Baso % (Auto) 0 (0-2) % Neut # (Auto) 4.3 (1.6-8.3) # Lymph # (Auto) 1.7 (0.6-5.0) # Ector # (Auto) 0.8 (0.0-1.3) # Eos # (Auto) 0.1 (0.0-0.8) # Baso # (Auto) 0.0 (0.0-0.2) # Sodium 135 (135-145) mmol/L Potassium 2.8 L* (3.5-5.3) mmol/L Chloride 94 L (100-110) mmol/L Carbon Dioxide 33 H (21-32) mmol/L BUN 28 H D (7-18) mg/dL Creatinine 1.0 (0.55-1.02) mg/dL Est Cr Clr Drug Dosing 27.93 mL/min Estimated GFR (MDRD) 52 L (>60) BUN/Creatinine Ratio 28.0 H (9-20) Glucose 86 (80-116) mg/dL Calcium 8.8 (8.6-10.2) mg/dL NT-Pro-B Natriuret Pep 3150 H* (<=450) pg/mL Fito Results Last 24 Hours: Microbiology 10/19/17 17:48 Aerobic Blood Culture - Preliminary Blood - Venous - Lab Draw NO GROWTH AFTER 3 DAYS Anaerobic Blood Culture - Preliminary NO GROWTH AFTER 3 DAYS 10/19/17 17:40 Aerobic Blood Culture - Preliminary Blood - Venous NO GROWTH AFTER 3 DAYS Anaerobic Blood Culture - Preliminary NO GROWTH AFTER 3 DAYS Med Orders - Current: Current Medications Acetaminophen (Tylenol) 650 mg PO Q4H PRN PRN Reason: Pain Last Admin: 10/22/17 20:12 Dose: 650 mg Albuterol (Proventil Neb Soln) 2.5 mg NEB Q2H PRN PRN Reason: Shortness Of Breath/wheezing Last Admin: 10/22/17 20:12 Dose: 2.5 mg Amantadine HCl (Symmetrel) 50 mg PO BID@1000,1600 [facility] Last Admin: 10/22/17 16:06 Dose: 50 mg Bisacodyl (Dulcolax) 10 mg RECTAL Q72H PRN PRN Reason: Constipation Carbidopa/Levodopa (Sinemet 25-100 Mg) 2.5 tab PO 13 [facility] Last Admin: 10/22/17 12:47 Dose: 2.5 tab Carbidopa/Levodopa (Sinemet Cr 50-200 Mg) 1 tab PO QPM@2000 [facility] Last Admin: 10/22/17 20:10 Dose: 1 tab Carbidopa/Levodopa (Sinemet 25-100 Mg) 2.5 tab PO DAILY@1000 [facility] Last Admin: 10/22/17 09:57 Dose: 2.5 tab Carbidopa/Levodopa (Sinemet 25-100 Mg) 3 tab PO BID@0700,1600 [facility] Last Admin: 10/22/17 16:05 Dose: 3 tab Ceftriaxone Sodium (Rocephin) 1,000 mg IVPUSH Q24H [facility] Last Admin: 10/22/17 20:11 Dose: 1,000 mg Clonazepam (Klonopin) 0.25 mg PO BEDTIME [facility] Last Admin: 10/22/17 20:14 Dose: 0.25 mg Diclofenac Sodium (Voltaren 1% Gel) 2 gm TOP BEDTIME [facility] Last Admin: 10/22/17 20:11 Dose: 2 gm Docusate Sodium (Colace) 100 mg PO BID PRN PRN Reason: Constipation Furosemide (Lasix) 40 mg IVPUSH BIDDIURETIC [facility] Last Admin: 10/22/17 13:53 Dose: 40 mg Guaifenesin (Robitussin) 200 mg PO Q4H PRN PRN Reason: Cough Last Admin: 10/22/17 04:19 Dose: 200 mg Loperamide HCl (Imodium Ad) 2 mg PO BID PRN PRN Reason: Diarrhea Magnesium Hydroxide (Milk Of Magnesia) 30 ml PO DAILY PRN PRN Reason: Constipation Memantine (Namenda Xr) 28 mg PO DAILY [facility] Last Admin: 10/22/17 08:37 Dose: 28 mg Metolazone (Zaroxolyn) 2.5 mg PO DAILY@0730 [facility] Last Admin: 10/22/17 10:42 Dose: 2.5 mg Pimavanserin Tartrate [Nuplazid] 17 Mg TabOwn Med 0 mg PO QPM@1999 [facility] Last Admin: 10/22/17 20:08 Dose: 34 mg Rivastigmine Patch (13.3mg/24 Hr *Prom) 1 each TOP DAILY [facility] Last Admin: 10/22/17 08:37 Dose: 1 each Timoptic Ocudose 0.5 (% Ptom) 0 each EYELF BID@799,1999 [facility] Last Admin: 10/22/17 20:07 Dose: 1 each Paroxetine HCl (Paxil) 30 mg PO DAILY@1600 [facility] Last Admin: 10/22/17 16:05 Dose: 30 mg Potassium Chloride (Klor-Con M20) 20 meq PO BID [facility] Last Admin: 10/22/17 20:09 Dose: 20 meq Quetiapine Fumarate (Seroquel Xr) 25 mg PO BID@0800,2000 [facility] Last Admin: 10/22/17 20:09 Dose: 25 mg Senna/Docusate Sodium (Senna Plus) 1 tab PO Q48H [facility] Last Admin: 10/21/17 08:08 Dose: Not Given Sodium Chloride (Saline Flush) 10 ml FLUSH ASDIRECTED PRN PRN Reason: Keep Vein Open Last Admin: 10/22/17 13:53 Dose: 10 ml Discontinued Medications Acetaminophen (Tylenol Arthritis Pain) 650 mg PO Q4H PRN PRN Reason: Pain Albuterol/Ipratropium (Duoneb 3.0-0.5 Mg/3 Ml) 3 ml NEB ONETIME ONE Stop: 10/19/17 16:14 Last Admin: 10/19/17 17:12 Dose: 3 ml Carbidopa/Levodopa (Sinemet 25-100 Mg) 2.5 tab PO 10 MARKOS Carbidopa/Levodopa (Sinemet 25-100 Mg) 3 tab PO 07,16 [facility] Clonazepam (Klonopin) 0.25 mg PO BEDTIME [facility] Sodium Chloride (Normal Saline) 500 mls @ 999 mls/hr IV .BOLUS ONE Stop: 10/19/17 18:10 Last Admin: 10/19/17 20:11 Dose: 999 mls/hr Lactated Ringer's (Ringers, Lactated) 1,000 mls @ 125 mls/hr IV ASDIRECTED [facility] Last Infusion: 10/20/17 09:15 Dose: 0 mls/hr Ceftriaxone Sodium 1,000 mg/ (Sodium Chloride) 50 mls @ 100 mls/hr IV Q24H [facility] Azithromycin 500 mg/ Sodium (Chloride) 250 mls @ 250 mls/hr IV Q24H [facility] Last Admin: 10/21/17 10:15 Dose: 250 mls/hr Metolazone (Zaroxolyn) 5 mg PO ONETIME ONE Stop: 10/21/17 09:24 Last Admin: 10/21/17 10:14 Dose: Not Given Metolazone (Zaroxolyn) 5 mg PO ONETIME ONE Stop: 10/21/17 10:01 Last Admin: 10/21/17 10:15 Dose: 5 mg Non-Formulary Medication (Amantadine [Symmetrel]) 50 mg PO 10,16 [facility] Non-Formulary Medication (Clonazepam [Klonopin]) 0.25 mg PO BEDTIME [facility] Non-Formulary Medication (Memantine Hcl) 28 mg PO DAILY [facility] Non-Formulary Medication (Pimavanserin Tartrate [Nuplazid]) 34 mg PO 20 [facility] Non-Formulary Medication (Potassium Chloride [Potassium Chloride]) 20 meq PO 20 [facility] Non-Formulary Medication (Timolol [Betimol 0.5% Ophth Soln]) 2 drop EYELF 08, 20 [facility] Paroxetine HCl (Paxil) 30 mg PO 16 [facility] Potassium Chloride (Klor-Con M20) 20 meq PO QPM@1999 [facility] Last Admin: 10/21/17 20:14 Dose: 20 meq Quetiapine Fumarate (Seroquel Xr) 25 mg PO 08,20 [facility] Rivastigmine (Exelon) 13.3 mg TRDERM DAILY [facility] Senna/Docusate Sodium (Senna Plus) 1 tab PO Q48H [facility] Last Admin: 10/19/17 21:55 Dose: Not Given Timolol Maleate (Timoptic 0.5% Ophth Soln) 0 ml EYELF BID@799,1999 [facility] Timolol Maleate (Timoptic 0.5% Ophth Soln) 0 ml EYELF BID@799,1999 [facility] Last Admin: 10/19/17 22:22 Dose: 2 drop - Exam Quality Assessment: No: Supplemental Oxygen General: Alert HEENT: Pupils Equal Lungs: Clear to Auscultation Cardiovascular: Regular Rate - Problem List & Annotations (1) CHF (congestive heart failure) SNOMED Code(s): 90746865 Code(s): I50.9 - HEART FAILURE, UNSPECIFIED Status: Acute Current Visit: Yes Qualifiers: Heart failure chronicity: unspecified (2) Pneumonia SNOMED Code(s): 405813310 Code(s): J18.9 - PNEUMONIA, UNSPECIFIED ORGANISM Status: Acute Current Visit: Yes Qualifiers: Lung location: middle lobe of lung (3) Anxiety SNOMED Code(s): 78551800 Code(s): F41.9 - ANXIETY DISORDER, UNSPECIFIED Status: Chronic Current Visit: Yes (4) Depression SNOMED Code(s): 67928679 Code(s): F32.9 - MAJOR DEPRESSIVE DISORDER, SINGLE EPISODE, UNSPECIFIED Status: Chronic Current Visit: Yes Qualifiers: Depression Type: major depressive disorder Psychotic features: with psychotic features (5) Parkinson's disease SNOMED Code(s): 46901818 Code(s): G20 - PARKINSON'S DISEASE Status: Chronic Priority: High Current Visit: No Annotation/Comment:: stable, cont. current meds (6) HTN, Benign essential hypertension SNOMED Code(s): 4287930 Code(s): I10 - ESSENTIAL (PRIMARY) HYPERTENSION Status: Chronic Priority : Medium Current Visit: No Annotation/Comment:: cont. metoprolol (7) Sleep apnea SNOMED Code(s): 27113172 Code(s): G47.30 - SLEEP APNEA, UNSPECIFIED Status: Chronic Priority: Medium Current Visit: No Annotation/Comment:: Pt. declines CPAP. (8) Dementia SNOMED Code(s): 43215795 Code(s): F03.90 - UNSPECIFIED DEMENTIA WITHOUT BEHAVIORAL DISTURBANCE Status: Acute Current Visit: Yes Qualifiers: Dementia type: Alzheimer's disease Dementia behavioral disturbance: with behavioral disturbance (9) Hypokalemia SNOMED Code(s): 29060434 Code(s): E87.6 - HYPOKALEMIA Status: Acute Current Visit: Yes (10) Diarrhea SNOMED Code(s): 22155548 Code(s): R19.7 - DIARRHEA, UNSPECIFIED Status: Acute Current Visit: Yes Qualifiers: Diarrhea type: unspecified type Qualified Code(s): R19.7 - Diarrhea, unspecified - Problem List Review Problem List Initiated/Reviewed/Updated: Yes - My Orders Last 24 Hours: My Active Orders 10/22/17 09:15 Metolazone [Zaroxolyn] 2.5 mg PO DAILY@0730 Potassium Chloride [Klor-Con M20] 20 meq PO BID - Plan Plan:: Has improved. Diarrhea is likely side effect. K low,but can be replaced as an outpatient.DC home today
[2017-10-23] MEDS: Carbidopa/Levodopa 25-100 MG Tab PO SCH (10:04)
[2017-10-23] MEDS: TIMOPTIC OCUDOSE EYELF SCH (10:24)
[2017-10-23] MEDS: Memantine HCl 28 MG CAP.ER PO SCH (10:25)
[2017-10-23] MEDS: QUEtiapine 50 MG Tab.SR PO SCH (10:25)
[2017-10-23] MEDS: RIVASTIGMINE 13.3 MG/24 HR TOP SCH (10:25)
[2017-10-23] MEDS: Potassium Chloride 20 MEQ Tab.ER PO SCH (10:25)
[2017-10-23] MEDS: AMANTADINE 100 MG PO SCH (10:30)
[2017-10-23 11:00] VITALS: BP 107/52
--- NOTE | 2017-10-23 11:50 | DISCH ---
DISCHARGE DATE: 10/23/2017 REASON FOR ADMISSION: Pneumonia. DISCHARGE DIAGNOSES: 1. Congestive heart failure. 2. Pneumonia, question aspiration. 3. Dementia. 4. Parkinson disease. 5. Hypertension. 6. Sleep apnea. 7. Hypokalemia. 8. Unspecified diarrhea. BRIEF HISTORY AND HOSPITAL COURSE: This is an 87-year-old female admitted from [facility] with shortness of breath, cough, decreased appetite for 2 days. A chest x-ray was initially read as pneumonia due to the infiltrates and it was a portable. She was started on IV antibiotics and IV fluids. Upon admission, I discontinued the IV fluids, continued the antibiotics, Rocephin and azithromycin, instead started diuresis. Her symptoms improved over the next 2 to 3 days. She only needed oxygen 1 L initially, which was discontinued. She was noted to be confused in the evenings, but that was not unusual. Lasix was given IV and I also added metolazone orally. Her potassium went down to 2.8 at discharge. I will replace orally at the [facility]. DISCHARGE MEDICATIONS: 1. Acetaminophen. 2. Amantadine. 3. Sinemet. 4. Augmentin 875 mg b.i.d. for 5 days. 5. Clonazepam 0.25 mg at bedtime. 6. Diclofenac gel. 7. Lasix 40 mg b.i.d. orally. 8. Docusate sodium 100 mg p.o. b.i.d. p.r.n. 9. Namenda 28 mg daily. 10.Paxil 30 mg a day. 11.Nuplazid 34 mg daily. 12.Potassium chloride 20 mEq t.i.d. 13.Seroquel 25 mg twice a day. 14.Rivastigmine 13.3 mg transdermally every day. 15.Timoptic drops. FOLLOWUP: See physician in the [facility] as previously scheduled. I spent more than 35 minutes in the discharge of the patient. /[id number] ANNALISA/JEANE
== END 2017-10-23 13:15 | DRG 291 ==
LOC: FB.ED 14:56 → FB.MS 17:55
PROVIDERS: ADMIT Emergency Medicine; ATTEND Family Medicine
DX: J18.9 Pneumonia, unspecified organism (principal); I11.0 Hypertensive heart disease with heart failure; J69.0 Pneumonitis due to inhalation of food and vomit; I50.9 Heart failure, unspecified; E86.0 Dehydration; G20 Parkinson's disease; G30.9 Alzheimer's disease, unspecified; F02.80 Dementia in other diseases classified elsewhere, unspecified severity, without behavioral disturbance, psychotic disturbance, mood disturbance, and anxiety; G25.0 Essential tremor; Z66 Do not resuscitate; R06.02 Shortness of breath; Z99.3 Dependence on wheelchair; E87.6 Hypokalemia; R19.7 Diarrhea, unspecified; G47.30 Sleep apnea, unspecified; F32.9 Major depressive disorder, single episode, unspecified; F41.9 Anxiety disorder, unspecified; Z87.440 Personal history of urinary (tract) infections; M19.90 Unspecified osteoarthritis, unspecified site; R32 Unspecified urinary incontinence; H54.7 Unspecified visual loss; Z88.6 Allergy status to analgesic agent; Z88.5 Allergy status to narcotic agent; Z88.2 Allergy status to sulfonamides; Z88.8 Allergy status to other drugs, medicaments and biological substances
CPT/HCPCS: 36415; 71045; 80048; 83605; 83880; 84484; 85025; 85610; 87040 ×2; 93005; 99285; J7620; 94640; A9270; A9270-GY; J0456; J0696; J1940; J7040; J7050; J7120

== ENCOUNTER 2017-11-01 01:54 | Emergency (ER) | payer MEDICARE, MEDICAID ==
[2017-11-01 02:18] VITALS: BP 106/69
--- NOTE | 2017-11-01 06:23 | ER ---
DATE SEEN: 11/01/2017 TIME SEEN: 0200 hours. REASON FOR VISIT: Apnea. HISTORY OF PRESENT ILLNESS: This is an 87-year-old female, who was brought in because [facility] reported that she was not breathing for about 20 seconds. The patient is a poor historian because of dementia and is unable to give much history. A week ago, she was in the hospital for pneumonia and CHF. There has been no cough. No fever or chills. MEDICATIONS: Reviewed. ALLERGIES: Reviewed. PHYSICAL EXAMINATION: GENERAL: Upon exam, she is a healthy-looking with no acute distress. VITAL SIGNS: Respiratory rate is 16 per minute, oxygenation is 94% on room air, blood pressure is normal. HEENT: Negative. Head is normal size. NECK: No JVD. CHEST: Clear anteriorly. CARDIOVASCULAR: Normal. EXTREMITIES: No edema. LABORATORY DATA: I reviewed yesterday's labs that showed a white cell count of 15,000. Creatinine of 1.2. Electrolytes were normal. Chest x-ray from yesterday was significantly much better than the one previously a week ago. IMPRESSION: 1. Congestive heart failure, stable. 2. Dementia. 3. Recent pneumonia. PLAN: No further treatment. The patient [facility] and advised to return and keep her vital signs every so often and see physician at the [facility] with any concerns. /[id number] ANNALISA/JEANE
== END 2017-11-01 02:24 | disposition home or self-care (01) ==
LOC: FB.ED 01:54
DX: I50.9 Heart failure, unspecified (principal); J18.9 Pneumonia, unspecified organism; F03.90 Unspecified dementia, unspecified severity, without behavioral disturbance, psychotic disturbance, mood disturbance, and anxiety
CPT/HCPCS: 99281